=== PATIENT | female | born 1950 | race Caucasian/White ===

== ENCOUNTER → 2018-11-04 | Outpatient (CLI) | payer MEDICARE ==
--- NOTE | 2018-11-04 12:07 | BD ---
EXAMINATION TYPE: Axial Bone Density DATE OF EXAM: 11/04/2018 CLINICAL HISTORY: Height: 63.75 Weight: 209 FRAX RISK QUESTIONS: Alcohol (3 or more units per day): no Family History (Parent hip fracture): no Glucocorticoids (More than 3mos): no (Ex: prednisone, prednisolone, methylprednisolone, dexamethasone, and hydrocortisone). History of Fracture in Adulthood: toe Secondary Osteoporosis: 1. Type 1 Diabetes: no 2. Hyperthyroidism: no 3. Menopause before 45: no 4. Malnutrition: no 5. Chronic liver disease: no Rheumatoid Arthritis: no Current Tobacco Use: no RISK FACTORS HISTORY OF: Family History of Osteoporosis: no Active: yes Diet low in dairy products/other sources of calcium: no Postmenopausal woman: yes Take estrogen and/or progesterone medications: not now How long: about 8 years after 1999 hysterectomy Lost more than 2 inches in height since high school: no Frequent falls: no Poor Health: no Hyperparathyroidism: no Adrenal Insufficiency: no MEDICATIONS: Prednisone or other steroids: no Thyroid Medications: yes How Long: about 25 years Osteoporosis Medications: no Additional Medications: multivitamin Additional History: history of Hashimotos EXAM MEASUREMENTS: Bone mineral densitometry was performed using the [employer]. Bone mineral density as measured about the Lumbar spine is: ----- L1-L4(G/cm2): 1.208 T Score Values are as follows: ----- L2: 0.5 ----- L3: 0.3 ----- L4: 0.6 ----- L1-L4: 0.2 Bone mineral density not previously done at this facility; done elsewhere Bone mineral density about the R hip (g/cm2): 0.837 Bone mineral density about the L hip (g/cm2): 0.827 T Score values are as follows: -----R Neck: -1.4 -----L Neck: -1.5 -----R Total: -1.1 -----L Total: -1.0 Bone mineral density not previously done at this facility; done elsewhere IMPRESSION: Osteopenia (T Score between -2.5 and -1). There is slightly increased risk of fracture and the patient may be considered for treatment. Re-Screen 2-5 years. NOTE: T-SCORE=SD OF THE YOUNG ADULT MEAN.
== END | disposition home or self-care (01) ==
LOC: RADBDWWP 07:21
PROVIDERS: ATTEND Family Medicine
DX: M85.851 Other specified disorders of bone density and structure, right thigh (principal); M85.852 Other specified disorders of bone density and structure, left thigh
CPT/HCPCS: 77080

== ENCOUNTER → 2019-03-30 | Outpatient (CLI) | payer MEDICARE ==
--- NOTE | 2019-04-06 14:28 | MM ---
Reason for exam: screening (asymptomatic). Last mammogram was performed 1 year and 9 months ago. History: Patient is postmenopausal. Took estrogen for 8 years. Physical Findings: A clinical breast exam by your physician is recommended on an annual basis and results should be correlated with mammographic findings. MG Screening Mammo w CAD Bilateral CC and MLO view(s) were taken. Prior study comparison: June 16, 2017, mammogram, performed at [place]. April 17, 2016, mammogram, performed at [place]. There are scattered fibroglandular densities. Finding: There are typically benign vascular calcifications. No suspicious abnormality. No significant changes in finding since June 16, 2017 and April 17, 2016. ASSESSMENT: Benign, BI-RAD 2 RECOMMENDATION: Routine screening mammogram of both breasts in 1 year.
== END | disposition home or self-care (01) ==
LOC: RADMAMWWP 11:09
PROVIDERS: ATTEND Family Medicine
DX: Z12.31 Encounter for screening mammogram for malignant neoplasm of breast (principal)
CPT/HCPCS: 77067

== ENCOUNTER → 2019-07-16 | Outpatient (CLI) | payer MEDICARE ==
[2019-07-16 07:53] LABS: African American GFR (CKD) >90 (>60 ml/min/1.73 sqM); Blood Urea Nitrogen 11 mg/dL (7-17); Non-African American GFR(CKD) 82 (>60 ml/min/1.73 sqM)
--- NOTE | 2019-07-16 08:36 | CT ---
EXAMINATION TYPE: CT soft tissue neck w con DATE OF EXAM: 07/16/2019 COMPARISON: None HISTORY: Left vocal cord paralysis CT DLP: 619 mGycm CONTRAST: CT scan of the neck is performed with IV Contrast, patient injected with 100 ml mL of Isovue 300. Contrast enhanced CT of the neck was performed from the skull base through the lung apices. AIRWAY: The supraglottic, glottic, and subglottic portions of the airway appear patent and free of mass. SALIVARY GLANDS: The submandibular and parotid glands are free of mass or inflammatory process. THYROID GLAND: No nodules or masses seen. LYMPH NODES: No adenopathy seen greater than 1cm. LUNG APICES: No nodule or mass is seen. OTHER: Vascular structures are patent. No significant degenerative change of the cervical spine. N o abscess seen. IMPRESSION: No distinct abnormality to account for the patient's symptoms. Consider direct visualization.
== END | disposition home or self-care (01) ==
LOC: RADCTMAIN 07:18
PROVIDERS: ATTEND Otolaryngology
DX: J38.00 Paralysis of vocal cords and larynx, unspecified (principal)
CPT/HCPCS: 82565; 84520; 70491; 36415; Q9967

== ENCOUNTER → 2019-10-13 | Outpatient (CLI) | payer MEDICARE ==
[2019-10-13 09:26] LABS: Basophils % (A) 1 %; Eosinophils # (A) 0.1 k/uL (0-0.7); Eosinophils % (A) 2 %; HCT 43.3 % (34.0-46.0); HGB 14.5 gm/dL (11.4-16.0); Lymphocytes # (A) 0.8 k/uL (1.0-4.8); Lymphocytes % (A) 18 %; MCH 29.6 pg (25.0-35.0); MCHC 33.5 g/dL (31.0-37.0); MCV 88.5 fL (80.0-100.0); Mean Platelet Volume 5.7; Monocytes # (A) 0.3 k/uL (0-1.0); Monocytes % (A) 6 %; Neutrophils # (A) 3.3 k/uL (1.3-7.7); Neutrophils % (A) 71 %; Platelet Count 290 k/uL (150-450); RBC 4.89 m/uL (3.80-5.40); RDW 12.7 % (11.5-15.5); WBC 4.6 k/uL (3.8-10.6)
[2019-10-13 16:06] LABS: African American GFR (CKD) 86.6 (60.0-200.0); Albumin 4.2 g/dL (3.80-4.90); Albumin/Globulin Ratio 2.21 (1.60-3.17); BUN/Creat Ratio 11.25 Ratio (12.00-20.00); Calcium 9.1 mg/dL (8.7-10.3); Chol/HDL Ratio 3.02; Globulin 1.9 g/dL (1.6-3.3); LDL Cholesterol,Calculated 109.2 mg/dL (0.0-131.0); Non-African American GFR(CKD) 74.7 (60.0-200.0); Potassium 4.2 mmol/L (3.5-5.5); Total Bilirubin 0.4 mg/dL (0.2-1.2); Total Protein 6.1 g/dL (6.2-8.2); VLDL Calculation 13.8 mg/dL (5.00-40.00)
== END ==
LOC: LABWHC1 08:37
PROVIDERS: ATTEND Family Medicine
DX: Z00.00 Encounter for general adult medical examination without abnormal findings (principal); F31.81 Bipolar II disorder; E06.3 Autoimmune thyroiditis
CPT/HCPCS: 36415; 80053; 80061; 84443; 85025

== ENCOUNTER → 2021-05-22 | Outpatient (CLI) | payer MEDICARE ==
--- NOTE | 2021-05-25 13:42 | MM ---
Reason for exam: screening (asymptomatic). Last mammogram was performed 2 years and 2 months ago. History: Patient is postmenopausal. Family history of breast cancer in sister. Took estrogen for 8 years. Physical Findings: A clinical breast exam by your physician is recommended on an annual basis and results should be correlated with mammographic findings. MG 3D Screening Mammo W/Cad Bilateral CC and MLO view(s) were taken. Prior study comparison: March 30, 2019, bilateral MG screening mammo w CAD. June 16, 2017, mammogram, performed at [place]. There are scattered fibroglandular densities. Finding: There are typically benign vascular calcifications in the right breast. ASSESSMENT: Benign, BI-RAD 2 RECOMMENDATION: Routine screening mammogram of both breasts in 1 year.
== END | disposition home or self-care (01) ==
LOC: RADMAMWWP 13:07
PROVIDERS: ATTEND Family Medicine
DX: Z12.31 Encounter for screening mammogram for malignant neoplasm of breast (principal); Z78.0 Asymptomatic menopausal state; Z80.3 Family history of malignant neoplasm of breast; Z79.818 Long term (current) use of other agents affecting estrogen receptors and estrogen levels
CPT/HCPCS: 77063; 77067

== ENCOUNTER → 2021-06-28 | Outpatient (CLI) | payer MEDICARE ==
--- NOTE | 2021-06-28 09:59 | XR ---
EXAMINATION TYPE: XR knee complete LT DATE OF EXAM: 06/28/2021 COMPARISON: None HISTORY: Pain TECHNIQUE: 3 view left knee FINDINGS: There is narrowing of the medial lateral compartment joint spaces. Patellofemoral joint spa ce degenerative changes noted. Posterior superior and posterior inferior patellar spurring is present . Medial and lateral tibial plateau spurring is present. No acute fractures are evident. No joint effusion is evident. IMPRESSION: 1. Moderate degenerative changes left knee
== END | disposition home or self-care (01) ==
LOC: RADXRMAIN 09:24
PROVIDERS: ATTEND Family Medicine
DX: M17.12 Unilateral primary osteoarthritis, left knee (principal)

== ENCOUNTER → 2021-07-17 | Outpatient (CLI) | payer MEDICARE ==
--- NOTE | 2021-07-17 10:39 | XR ---
EXAMINATION TYPE: XR chest 2V DATE OF EXAM: 07/17/2021 COMPARISON: NONE HISTORY: Shortness of breath TECHNIQUE: Frontal and lateral views of the chest are obtained. FINDINGS: Scattered senescent parenchymal changes noted. No evidence for infiltrate. No evidence for atelectasis. Heart size is stable. Mediastinal structures are stable and grossly unremarkable. No evidence for hilar prominence. Degenerative changes dorsal spine. IMPRESSION: 1. No evidence for acute pulmonary disease.
== END | disposition home or self-care (01) ==
LOC: RADXRMAIN 10:14
PROVIDERS: ATTEND Otolaryngology
DX: R06.02 Shortness of breath (principal)
CPT/HCPCS: 71046

== ENCOUNTER → 2022-08-05 | Outpatient (CLI) | payer MEDICARE ==
[~2022-08-05] MED LIST: REGADENOSON 0.4 MG/5 ML SYRINGE IV PRN
--- NOTE | 2022-08-05 12:29 | NM ---
EXAMINATION TYPE: NM stress lexiscan cardiolite DATE OF EXAM: 08/05/2022 COMPARISON: NONE HISTORY: Abnormal EKG TECHNIQUE: After the intravenous administration of 10.0 mCi Tc 99m Sestamibi - Cardiolite resting SP ECT images acquired 45 minutes post injection. The patient received 0.4mg Lexiscan, 26.0 mCi Tc 99m Sestamibi - Stress images obtained [address] injection FINDINGS: Review of stress and rest SPECT images demonstrates no distinct perfusion abnormality. Gated analysi s shows normal wall motion with an estimated left ventricular ejection fraction of 69 %. IMPRESSION: No scintigraphic evidence for reversible ischemia.
--- NOTE | 2022-08-05 15:38 | CA ---
Lexiscan Nuclear Stress Test Report Name: Johanne Blake Exam Date: 08/05/2022 09:22 Exam Location: [place] Stress Ht (in): 65 Wt (lb): 210 BSA: 2.02 Ordering Phys: Sawyer York MD Referring Phys: Esme Velasco Technologist: Claude Banks Age: 71 Gender: F : 1950 Procedure CPT: Indications: R94.31 abn ekg ICD-10 Codes: Patient History: Medications: SYNTHROID, MELOXICAM Meds past 24 hrs: Pretest Chest Pain: STRESS TEST Lexiscan Protocol Exercise Duration (min:sec): 02:[address] Depressions (mm): Angina Score: Horvath Score: Resting HR (bpm): 71 Peak HR (bpm): 90 Resting BP (mmHg): 143 / 82 Peak BP (mmHg): 139 / 76 MPHR: 148 Target HR: 126 % MPHR: 61 METS: 1.0 Total Dose: Peak Dose: Atropine: Double Product: 40371 BP Response: Stress Termination: PROTOCOL COMPLETE Stress Symptoms: NO SYMPTOMS Stress Summary: ECG ANALYSIS Resting ECG: Stress ECG: CONCLUSIONS Baseline heart rate 71 beats a minute, Baseline blood pressure 143/82 mmHg Patient received Lexiscan infusion per protocol No ECG is for ischemia No arrhythmias Occasional PACs Underlying right bundle branch block pattern Dr. Migue Mary MD (Electronically Signed) Final Date: 05 August 2022 15:37
== END | disposition home or self-care (01) ==
LOC: RADNMMAIN 07:33
PROVIDERS: ATTEND Family Medicine
DX: R94.31 Abnormal electrocardiogram [ECG] [EKG] (principal); R07.9 Chest pain, unspecified
CPT/HCPCS: 93017; 78452; A9500; J2785

== ENCOUNTER → 2022-12-03 | Outpatient (CLI) | payer MEDICARE ==
[2022-12-03 10:50] LABS: Basophils # (A) 0.07 X 10*3/uL (0.00-0.10); Basophils % (A) 1.2 %; Eosinophils % (A) 3.4 %; HCT 37.4 % (37.2-46.3); Immature Grans, Automated 0.3 %; Lymphocytes # (A) 1.91 X 10*3/uL (0.90-5.00); Lymphocytes % (A) 32.2 %; MCH 28.9 pg (27.0-32.0); MCHC 32.1 g/dL (32.0-37.0); MCV 90.1 fL (80.0-97.0); Mean Platelet Volume 11.7 fL (9.5-12.2); Monocytes # (A) 0.33 X 10*3/uL (0.20-1.00); Monocytes % (A) 5.6 %; NRBC Per 100 WBC 0 /100 WBCS (0.0-0.0); Neutrophils # (A) 3.41 X 10*3/uL (1.80-7.70); Neutrophils % (A) 57.3 %; Platelet Count 299 X 10*3/uL (140-440); RBC 4.15 X 10*6/uL (4.10-5.20); RDW 12.9 % (11.5-14.5); WBC 5.94 X 10*3/uL (4.50-10.00)
[2022-12-03 17:20] LABS: Chol/HDL Ratio 3.97 Ratio
--- NOTE | 2022-12-04 07:36 | MM ---
Reason for Exam: Screening (asymptomatic). Last mammogram was performed 1 year(s) and 7 month(s) ago. Patient History: Menarche at age 11. First Full-Term at age 18. Left ovary removed at age 49. Right ovary removed at age 49. Hysterectomy at age 49. Postmenopausal. Patient used Estrogen for 8 years. Sister had breast cancer. Risk Values: Michelle 5 year model risk: 3.3%. NCI Lifetime model risk: 7.9%. Prior Study Comparison: 06/16/2017 Screening Mammogram, [place]. 03/30/2019 Bilateral Screening Mammogram, [facility]. 05/22/2021 Bilateral Screening Mammogram, [facility]. Tissue Density: The breast tissue is almost entirely fat. Findings: Analyzed By CAD. There is no suspicious group of microcalcifications or new suspicious mass in either breast. Overall Assessment: Negative, BI-RAD 1 Management: Screening Mammogram of both breasts in 1 year. A clinical breast exam by your physician is recommended on an annual basis and results should be correlated with mammographic findings. [facility] will attempt to contact patient to return for supplemental views and ultrasound if indicated. Electronically signed and approved by: Carlton Ambrocio DO
== END | disposition home or self-care (01) ==
LOC: RADMAMWWP 07:31
PROVIDERS: ATTEND Family Medicine
DX: Z12.31 Encounter for screening mammogram for malignant neoplasm of breast (principal); Z00.01 Encounter for general adult medical examination with abnormal findings; E78.2 Mixed hyperlipidemia; E03.9 Hypothyroidism, unspecified; Z80.3 Family history of malignant neoplasm of breast; Z78.0 Asymptomatic menopausal state
CPT/HCPCS: 77063; 77067; 80053; 80061; 83036; 84439; 84443; 84481; 85025

== ENCOUNTER → 2022-12-05 | Outpatient (CLI) | payer MEDICARE ==
[2022-12-05 09:48] LABS: Albumin 4.1 g/dL (3.5-5.0); Calcium 9.4 mg/dL (8.4-10.2); Potassium 4.4 mmol/L (3.5-5.1); Total Bilirubin 0.5 mg/dL (0.2-1.3); Total Protein 7.2 g/dL (6.3-8.2)
== END | disposition home or self-care (01) ==
LOC: LAB 08:45
PROVIDERS: ATTEND Nurse Practitioner Adult Health
DX: Z00.01 Encounter for general adult medical examination with abnormal findings (principal); E78.2 Mixed hyperlipidemia; E03.9 Hypothyroidism, unspecified
CPT/HCPCS: 80053

== ENCOUNTER → 2023-06-03 | Outpatient (CLI) | payer MEDICARE ==
[2023-06-03 09:13] LABS: INR 0.9 (<1.2)
[2023-06-03 16:38] LABS: HCT 44.5 % (37.2-46.3); HGB 15.1 d/dL (12.0-15.0); MCH 29.5 pg (27.0-32.0); MCHC 33.9 d/dL (32.0-37.0); MCV 86.9 FL (80.0-97.0); Mean Platelet Volume 8.8 FL (9.5-12.2); NRBC Per 100 WBC 0 X 10*3/uL (0.00-0.01); Platelet Count 319 X 10*3/uL (140-440); RBC 5.12 X 10*6/uL (4.10-5.20); RDW 12.7 % (11.5-14.5); WBC 5.78 X 10*3/uL (4.50-10.00)
[2023-06-03 16:54] LABS: ALT 28 U/L (8-44); AST 24 U/L (13-35); Albumin 4.4 d/dL (3.8-4.9); Albumin/Globulin Ratio 1.91 Ratio (1.60-3.17); Alkaline Phosphatase 106 U/L (41-126); BUN/Creat Ratio 9.83 Ratio (12.00-20.00); Blood Urea Nitrogen 5.9 mg/dL (9.0-27.0); Calcium 9.9 mg/dL (8.7-10.3); Chloride 104 mmol/L (96-109); Globulin 2.3 d/dL (1.6-3.3); Glucose 107 mg/dL (70-110); Potassium 4.2 mmol/L (3.5-5.5); Sodium 138 mmol/L (135-145); Total Bilirubin 0.3 mg/dL (0.3-1.2); Total Protein 6.7 d/dL (6.2-8.2)
[2023-06-03 17:11] LABS: Appearance,Urine Clear (Clear); Bilirubin,Urine Negative (Negative); Blood,Urine Negative (Negative); Color,Urine Colorless; Glucose,Urine (UA) Negative (Negative); Ketones,Urine Negative (Negative); Leukocyte Esterase,Urine Negative (Negative); Nitrite,Urine Negative (Negative); Protein,Urine Negative (Negative); Specific Gravity,Urine 1.003 (1.001-1.035); Urobilinogen,Urine <2.0 mg/dL (<2.0)
== END | disposition home or self-care (01) ==
LOC: LABPAT 07:57
PROVIDERS: ATTEND Orthopaedic Surgery
DX: Z01.818 Encounter for other preprocedural examination (principal); M17.12 Unilateral primary osteoarthritis, left knee
CPT/HCPCS: 36415; 80053; 81003; 85027; 85610; 85730; 87070; 93005

== ENCOUNTER 2023-06-25 10:48 | Day surgery (SDC) | payer MEDICARE ==
[2023-06-18 14:35] VITALS: BMI 32.4
[~2023-06-25 10:48] MED LIST changes: +ACETAMINOPHEN TAB 500 MG TAB PO PRN; +DEXAMETHASONE SOD PHOSPHATE 10 MG/ML 1 ML VIAL IV PRN; +DOCUSATE 100 MG CAP PO PRN; +FAMOTIDINE 20 MG/2 ML VIAL IVP PRN; +HYDROmorphone 0.5 MG/0.5 ML SYRINGE IVP PRN; +KETOROLAC 15 MG/ML 1 ML VIAL IVP PRN; +LACTATED RINGERS 1,000 ML IV SCH; +LIDOCAINE 1% (10MG/ML) FOR IV START INTRADERMA PRN; +ONDANSETRON 4 MG/2 ML VIAL IVP ONE; +ONDANSETRON 4 MG/2 ML VIAL IVP PRN; -REGADENOSON 0.4 MG/5 ML SYRINGE IV PRN; +ROPIVACAINE/EPI/CLONIDINE/KET 50 ML SYRINGE MISCELLANE PRN; +TRANEXAMIC 1,000 MG/100ML-NACL 1,000 MG in SALINE 1 100ML.BAG IV PRN; +TRANEXAMIC 1,000 MG/100ML-NACL 1,000 MG in SALINE 1 100ML.BAG IVPB PRN; +oxyCODONE ER 10 MG TAB.ER.12H PO PRN
[2023-06-25] MEDS ORDERED: fentaNYL (PF) 50 MCG/1 ML VIAL IVP ONE (11:59)
[2023-06-25] MEDS ORDERED: MIDAZOLAM 2 MG/2 ML VIAL IVP ONE (11:59)
--- NOTE | 2023-06-25 12:14 | P.ANPRN ---
Procedure Note - Anesthesia - Nerve Block Performed Left Adductor Canal Time Out Performed: Yes (11:58) Date of Procedure: 06/25/23 Procedure Start Time: :58 Procedure Stop Time: 12:03 Location of Patient: PreOp Indication: Acute Post-Operative Pain, Requested by Surgeon (Dr Finn) Sedation Type: Sedate with meaningful contact maintained Preparation: Sterile Prep Position: Supine Catheter: None Needle Types: Pajunk Needle Gauge: 21 Ultrasound used to visualize needle placement: Yes Ultrasound used to observe medication spread: Yes Injectate: 0.5% Ropivacaine (see comment for volume) (20cc) Blood Aspirated: No Pain Paresthesia on Injection Noted: No Resistance on Injection: Normal Image Stored and Saved: Yes Events: Uneventful and Well Tolerated
--- NOTE | 2023-06-25 12:16 | P.ANPRN ---
Procedure Note - Anesthesia - Nerve Block Performed Left iPack Time Out Performed: Yes Date of Procedure: 06/25/23 Procedure Start Time: 12:04 Procedure Stop Time: 12:08 Location of Patient: PreOp Indication: Acute Post-Operative Pain, Requested by Surgeon (Dr Finn) Sedation Type: Sedate with meaningful contact maintained Preparation: Sterile Prep Position: Supine Catheter: None Needle Types: Pajunk Needle Gauge: 21 Ultrasound used to visualize needle placement: Yes Ultrasound used to observe medication spread: Yes Injectate: 0.5% Ropivacaine (see comment for volume) (20cc +5cc PF Normal saline) Blood Aspirated: No Pain Paresthesia on Injection Noted: No Resistance on Injection: Normal Image Stored and Saved: Yes Events: Uneventful and Well Tolerated
[2023-06-25] MEDS ORDERED: LIDOCAINE 2% INJ 20 MG/ML (2 ML VIAL) ONE (12:36)
[2023-06-25] MEDS ORDERED: SUCCINYLCHOLINE CHLORIDE 200 MG/10 ML VIAL IV ONE (12:36)
[2023-06-25] MEDS ORDERED: ROCURONIUM 10 MG/ML (5 ML VIAL) IV ONE (12:36)
[2023-06-25] MEDS ORDERED: ROPIVACAINE 5 MG/ML 30 ML VIAL ONE (12:36)
[2023-06-25] MEDS ORDERED: fentaNYL (PF) 50 MCG/ML 2 ML AMP ONE (12:36)
[2023-06-25] MEDS ORDERED: GLYCOPYRROLATE 0.2 MG/ML 2 ML VIAL ONE (12:36)
[2023-06-25] MEDS ORDERED: MIDAZOLAM 2 MG/2 ML VIAL ONE (12:36)
[2023-06-25] MEDS ORDERED: NEOSTIGMINE 1 MG/ML 10 ML VIAL ONE (12:36)
[2023-06-25] MEDS ORDERED: PROPOFOL 10 MG/ML 20 ML VIAL IV ONE (12:36)
[2023-06-25] MEDS ORDERED: TRANEXAMIC 1,000 MG/100ML-NACL PREMIX BAG ONE (12:36)
[2023-06-25] MEDS ORDERED: LACTATED RINGERS 1,000 ML IV ONE (13:30)
[2023-06-25] MEDS ORDERED: ONDANSETRON 4 MG/2 ML VIAL IVP PRN (15:03)
[2023-06-25] MEDS ORDERED: HYDROcodone/APAP 5-325MG 1 EACH TAB PO PRN (15:03)
[2023-06-25] MEDS ORDERED: hydrOXYzine pamoate 25 MG CAP PO PRN (15:03)
[2023-06-25] MEDS ORDERED: NALOXONE 0.4 MG/ML 1 ML VIAL IV PRN (15:03)
[2023-06-25] MEDS ORDERED: HYDROmorphone 0.5 MG/0.5 ML SYRINGE IVP PRN ×3 (15:03)
--- NOTE | 2023-06-25 15:03 | P.OP ---
Date of Procedure: 06/25/23 Preoperative Diagnosis: 1. Severe left knee osteoarthritis Postoperative Diagnosis: Same Procedure(s) Performed: Left total knee replacement Implants: 1. [place] Triathlon CR Femur Size #3 2. [place] Triathlon [place] Tibial Base Size #2 3. Steven Triathlon CS poly Size #2, 9-mm 4. Steven Triathlon all poly patella, Size #29 Anesthesia: JACOBA, regional Surgeon: Armando Finn Plant Operator Helper #1: Radu Little Estimated Blood Loss (ml): 100 IV fluids (ml): 1,200 Pathology: none sent Condition: stable Disposition: PACU Indications for Procedure: I met with the patient preoperatively in the office setting and discussed treatment of their symptomatic knee arthritis. They failed a long course of nonsurgical treatment and elected to proceed with an elective total knee replacement. I discussed the potential risks and complications at length and gave them ample time to ask questions. Risks discussed included: risks from anesthesia, superficial site surgical infection, acute and/or chronic periprosthetic joint infection, delayed wound healing, drainage, wound necrosis, instability, stiffness, stiffness requiring manipulation and/or revision surgery, damage to local blood vessels or nerves, aseptic loosening of the implants, extensor mechanism issues including disruption, patellar maltracking, avascular necrosis etc., continued or worsened knee pain, generalized dissatisfaction with surgical outcome, need for revision surgery, an inability to regain preinjury level of function, DVT, PE, other medical complications, and possibly loss of life or limb. The patient voiced their understanding that while these are the most common complications other less common complications are possible. They provided both their verbal and written consent to go forward with surgery. Description of Procedure: The patient was identified in preoperative holding and the correct operative extremity was verified and marked with a marker. I reviewed the consent form with the patient at length. All of their questions were answered. The patient was given a block by anesthesia. They were then brought back to the operating room. They were transferred onto the operating room table where a general anesthetic, preoperative antibiotics, and tranexamic acid were administered by anesthesia. A tourniquet was applied to the proximal aspect of the operative extremity. The contralateral extremity was padded under the heel and secured to the operating room table with a nonsterile blue towel and tape. The ipsilateral arm was carefully draped across the patient's chest and secured with a pillow and foam. A post was applied over the lateral aspect of the ipsilateral thigh and a bolster was placed under the ipsilateral foot. I verified that the operative extremity was stable and the knee was flexed to 90. The operative extremity was then placed in a leg romeo, nonsterile drapes were applied, and the extremity was prepped and draped sterilely in the standard sterile fashion. Prior to starting surgery timeout was performed identifying the correct patient, operative extremity, and procedure. The leg was then elevated, exsanguinated with an Esmarch bandage, and the tourniquet was inflated. An anterior midline incision was made sharply with a scalpel. Once I had dissected deep to the superficial fascial layer medial and lateral flaps were elevated. A medial parapatellar arthrotomy was created. Upon opening the knee joint there were diffuse arthritic changes in all 3 compartments. The anterior horn of the medial meniscus were sharply released and a medial release was performed around the posterior medial corner of the knee to facilitate retractor placement. The fat pad was excised with electrocautery. The patella was found to be severely arthritic and a provisional cut was made with a sagittal saw to facilitate mobilization of the extensor mechanism during the procedure. Remnants of the ACL and PCL were then excised from the notch. 4 mm pins were then placed within the incision in the medial distal femur and proximal tibia. Arrays were applied to the pins and I verified they were completely tightened. The knee was then registered with the Avocado™ robot and manipulations in implant position were made to balance the knee and opitmize implant position. Using the Dexter robotic saw all cuts were made in accordance with our plan. After all bony fragments had been removed the cuts were verified with the planar probe. The tibia was then subluxed forward and sized. The knee was brought into flexion and a lamina setter helper was placed to allow removal of the meniscal remnants both medially and laterally as well as posterior osteophytes. Local anesthetic was then infiltrated around the joint capsule. Trial implants were then placed within the knee. Range of motion and collateral ligament tension was then evaluated. Adjustments in implant size and position were then made accordingly. Once the knee was felt to be appropriately balanced the Dexter pins were removed. The patella was then recut, sized, and punched. A trial patellar button was then placed. With the trial components in place, the patella tracked midline. The femur was then drilled and the trial component removed. The trial tibial component was then appropriately rotated, pinned, and prepared for the keel. All trial components were then removed from the knee. The knee was thoroughly irrigated with pulsatile lavage. Cement was prepared via vacuum mixing in a bowl on the back table. I then hand pressurized cement into the femur and tibia and placed the implants beginning with the tibial base tray and poly liner, femoral component, and finally the patellar button. All extruded cement was removed including from the pin sites. Once the cement had hardened the knee was evaluated one final time with the final polyethylene liner in place. The knee had full extension and flexion and felt stable to varus and valgus stress throughout the arc of motion. The tourniquet was released and with the tourniquet down the patella tracked midline. All bleeders were controlled with electrocautery. The knee was then soaked for 3 minutes with a dilute Betadine soak. The knee was thoroughly irrigated using 3 L of sterile saline and pulsatile lavage. A deep drain was placed. The extensor mechanism was then reapproximated using pop off Vicryl sutures followed by a running barbed suture. The knee was then closed in layers with a 0 strata fix for the deep fascial layer, 2-0 strata fix for the superficial subcutaneous layer and Monocryl and Steri-Strips for the skin. A sterile dressing and drain sponge were applied. I verified that all instrument, sponge, and sharp counts were correct. The patient was then transferred off the operating room table, extubated, and brought to recovery having tolerated the procedure well. Radu Little PA-C was required as a skilled geriatric nurse assistant due to the complexity of the procedure for patient positioning, draping, retraction, placement of hardware, and closure of wound. PLAN: The patient can weight-bear as tolerated on the operative extremity. DVT prophylaxis with aspirin 81 mg twice a day based on preoperative risk stratification. Follow-up in the office in 2 weeks for wound check and x-rays of the knee including an AP and lateral.
--- NOTE | 2023-06-25 15:47 | XR ---
EXAMINATION TYPE: XR knee limited LT DATE OF EXAM: 06/25/2023 3:43 PM INDICATION: Patient age:Female; 72 years old; Reason for study: Evaluation for Postop abnormality and alignment; H. COMPARISON: Left knee radiograph 06/28/2021, CT left knee 06/17/2023 TECHNIQUE: The Left knee(s) was examined in frontal and crosstable lateral projections. FINDINGS: Postsurgical changes from left total knee arthroplasty with distal femoral and proximal t ibial components. Hardware appears intact with appropriate alignment. This associated soft tissue amber ma and gas. Surgical drain identified with tip posterior to the patella. No acute fracture or disloca tion. IMPRESSION: Postsurgical changes from left total knee arthroplasty. Hardware appears intact with appropriate alig nment.
--- NOTE | 2023-06-25 17:41 | P.CONS ---
History of Present Illness - Reason for Consult Consult date: 06/25/23 Hypothyroidism Requesting physician: Armando Finn - Chief Complaint left knee pain - History of Present Illness Patient is a 72-year-old female with Analy's thyroiditis, dyslipidemia, and known right bundle branch block who presented for elective left total knee arthroplasty. No immediate postoperative complications. Patient seen and examined at bedside. He is doing well. She is having minimal postoperative pain. She denies any lightheadedness, dizziness, nausea, vomiting. She's been doing well at home and has not been requiring any assistive devices to walk. Vital signs reviewed General: nontoxic, no distress, appears at stated age Derm: warm, dry Cardiovascular: S1S2 reg, no murmur, positive posterior tibial pulse bilateral, trace edema left lower extremity, capillary refill less than 2 seconds Lungs: clear to auscultation bilateral, no rhonchi, no rales, no wheeze, no accessory muscle use Ext: no gross muscle atrophy, moving all 4 cavities independently, no contractures Neuro: CN II-XII grossly intact, no focal neuro deficits Psych: Alert, oriented, appropriate affect Assessment/Plan: Patient is a 72-year-old female status post left total knee arthroplasty Hypothyroidism -Resume Synthroid 125 g daily Obesity with BMI 32.5 -Outpatient structured weight loss Imaging: Knee x-ray: Postsurgical changes left total knee, hardware appears intact with appropriate alignment Data Review: Vitals reviewed to mature 98.4, pulse 92, respirations 16, blood pressure 144/80, O2 sat 98% on room air Preoperative blood work reviewed. Hemoglobin 15.1, hematocrit 44.5, creatinine 0.6 Thank you for allowing us to participate in the care of this pleasant patient. Do not hesitate to contact us with questions. Someone can be reached from the [facility] hospitalist group all hours of the day at [phone] or via ISpeak. This dictation was prepared using [employer] voice recognition software. Though every attempt is made to correct errors during dictation some may still exist. Past Medical History Past Medical History: Osteoarthritis (OA), Thyroid Disorder History of Any Multi-Drug Resistant Organisms: None Reported Past Surgical History: Hysterectomy, Orthopedic Surgery Additional Past Surgical History / Comment(s): Right rotator cuff repair, right hammer toe surgery X2, ganglion cyst removed, bilateral cataract surgery. Past Anesthesia/Blood Transfusion Reactions: No Reported Reaction Smoking Status: Never smoker - Past Family History Mother Family Medical History: Cancer Additional Family Medical History / Comment(s): Ovarian cancer. Medications and Allergies Home Medications Medication Instructions Recorded Confirmed Type Acetaminophen Tab [Tylenol Tab] 500 - 1,000 mg PO Q4-6H PRN 06/18/23 06/25/23 History Calcium Carbonate [Calcium] 600 mg PO DAILY 06/18/23 06/18/23 History Levothyroxine Sodium 125 mcg PO QAM 06/18/23 06/25/23 History Multivitamins, Thera [Multivitamin 1 tab PO DAILY 06/18/23 06/18/23 History (formulary)] Allergies Allergy/AdvReac Type Severity Reaction Status Date / Time No Known Allergies Allergy Unverified 06/25/23 11:04 Physical Exam Osteopathic Statement: *. No significant issues noted on an osteopathic structural exam other than those noted in the History and Physical/Consult. Vitals: Vital Signs Temp Pulse Resp BP Pulse Ox 06/25/23 15:26 98.4 F 92 16 144/80 98 06/25/23 15:11 84 16 138/64 99 06/25/23 14:56 98.4 F 87 16 134/67 100 06/25/23 12:13 68 16 153/64 98 06/25/23 11:04 97.0 F L 87 18 162/79 98 Intake and Output 06/25/23 06/25/23 06/25/23 06:59 14:59 22:59 Intake Total 1650 Output Total 100 500 Balance 1550 -500 Intake: IV 1650 Output: Urine 500 Estimated Blood Loss 100 Other: Weight 88.6 kg 88.6 kg
[2023-06-25] MEDS: LACTATED RINGERS 1,000 ML IV SCH (18:22)
[2023-06-25] MEDS ORDERED: SENNOSIDES-DOCUSATE SODIUM 1 EACH TAB PO SCH (21:00)
[2023-06-25] MEDS: ASPIRIN 81 MG PO SCH (21:06)
[2023-06-25 21:39] VITALS: RESP 18
[2023-06-25] MEDS: HYDROcodone/APAP 5-325MG 1 EACH TAB PO PRN (23:04)
[2023-06-26] MEDS: LACTATED RINGERS 1,000 ML IV SCH (00:29)
[2023-06-26 06:44] LABS: HCT 35.8 % (34.0-46.0); HGB 11.9 gm/dL (11.4-16.0); MCH 29.1 pg (25.0-35.0); MCHC 33.1 g/dL (31.0-37.0); MCV 87.7 fL (80.0-100.0); Platelet Count 286 k/uL (150-450); RBC 4.08 m/uL (3.80-5.40); WBC 12.7 k/uL (3.8-10.6)
[2023-06-26 07:59] VITALS: BP 126/76; PULSE 92; TEMP 97.8
--- NOTE | 2023-06-26 08:37 | P.DS ---
Providers Expected date of discharge: 06/26/23 Attending physician: Armando Finn Consults: 06/25/23 15:03 Consult Physician Routine Consulting Provider: Paola White Consult Reason/Comments: medical management Do you want consulting provider notified?: Yes Primary care physician: Sawyer Shepherd [facility] Course: This is a 72-year-old female who has been followed in our office by Dr. Finn for continued complaints of left knee pain due to left knee osteoarthritis. Treatment options were discussed, and patient elected to undergo a left total knee arthroplasty. Patient was seen pre-operatively by Esme Velasco, ENGINEERING INTERN and cardiology and cleared for surgery. Patient underwent a left total knee arthroplasty on 06/25/[address] Finn. The procedure was performed without complication or sequelae. The patient is doing fairly well postoperatively. Vital signs and labs are stable on postoperative day #1. Patient was examined bedside this morning with Dr. Finn. Patient states she is overall doing very well and the pain in her knee is well-controlled. She has been ambulating with a walker with minimal assistance. Patient is awaiting evaluation by physical therapy. Patient is comfortable being discharged home today. Patient has no new complaints this morning. On examination, the patient is sitting up in bed in no apparent distress. She is alert and orientated 3. On inspection of the left knee, there is a clean, dry, intact surgical dressing in place with no bleeding or drainage through the dressing. Patient has good strength and ROM of the left ankle and toes. Motor and sensory function is intact of the left lower extremity. The dorsalis pedis pulse is easily palpable, the left lower extremity is warm and well perfused with brisk capillary refill. Calf is soft and non-tender to palpation. Hemovac drain removed bedside this morning during examination. Patient is discharged home with home health care today in good condition, pending medical clearance. Patient will follow-up in the office at [facility] in 2 weeks. Please see med rec for accurate list of discharge medication. Plan - Discharge Summary Discharge Rx Participant: Yes New Discharge Prescriptions: No Action Levothyroxine Sodium 125 mcg PO QAM Acetaminophen Tab [Tylenol Tab] 500 - 1,000 mg PO Q4-6H PRN PRN Reason: Pain Multivitamins, Thera [Multivitamin (formulary)] 1 tab PO DAILY Calcium Carbonate [Calcium] 600 mg PO DAILY Discharge Medication List Acetaminophen Tab [Tylenol Tab] 500 - 1,000 mg PO Q4-6H PRN 06/18/23 [History] Calcium Carbonate [Calcium] 600 mg PO DAILY 06/18/23 [History] Levothyroxine Sodium 125 mcg PO QAM 06/18/23 [History] Multivitamins, Thera [Multivitamin (formulary)] 1 tab PO DAILY 06/18/23 [History]
[2023-06-26] MEDS: ASPIRIN 81 MG PO SCH (10:03)
[2023-06-26] MEDS: HYDROcodone/APAP 5-325MG 1 EACH TAB PO PRN (10:04)
--- NOTE | 2023-06-26 12:27 | P.PN ---
Subjective Progress Note Date: 06/26/23 Subjective: Seen and examined at bedside. No acute events overnight. She claims that she did well with physical therapy. Denies any new complaints. Pertinent positives and negatives as discussed above, a complete review of systems was performed and all other systems are negative. Vitals Signs Reviewed. General: nontoxic, no distress, appears at stated age Derm: warm, dry, left knee dressing clean, dry, intact Head: atraumatic, normocephalic, symmetric Eyes: EOMI, no lid lag, anicteric sclera Mouth: no lip lesion, mucus membranes moist Cardiovascular: S1S2 reg, no murmur Lungs: CTA bilateral, no rhonchi, no rales , no accessory muscle use Abdominal: soft, nontender to palpation, no guarding, no appreciable organomegaly Ext: no gross muscle atrophy, no edema, no contractures Neuro: CN II-XI grossly intact, no focal neuro deficits Psych: Alert, oriented, appropriate affect Data Reviewed Today: Pertinent Labs: WBC 12.7 hemoglobin 11.9 Imaging: No new imaging Assessment and Plan: Hypothyroidism Obesity with BMI 32.5 Status post left total knee arthroplasty Leukocytosis, reactive, anticipated outcome of surgery -Continue home medications -Outpatient structured weight loss -Rest of the management per primary service Patient is medically optimized for discharge home. Thank you for allowing us to participate in the care of this pleasant patient. Do not hesitate to contact us with questions. Someone can be reached from the [facility] hospitalist group all hours of the day at [phone] or via perfect serve. Objective - Vital Signs Vital signs: Vital Signs Temp 97.8 F 06/26/23 07:58 Pulse 92 06/26/23 08:00 Resp 18 06/26/23 08:00 BP 126/76 06/26/23 07:58 Pulse Ox 96 06/26/23 07:58 FiO2 Intake & Output 06/25/23 06/26/23 06/26/23 18:59 06:59 18:59 Intake Total 1850 Output Total 600 250 Balance 1250 -250 Weight 88.6 kg Intake: IV 1650 Oral 200 Output: Drainage 250 Left Knee 250 Urine 500 Estimated Blood Loss 100 Other: # Voids 1 4 - Labs CBC & Chem 7: 06/26/23 05:46 Labs: Abnormal Lab Results - Last 24 Hours (Table) 06/26/23 Range/Units 05:46 WBC 12.7 H (3.8-10.6) k/uL
== END 2023-06-26 13:19 | disposition home health service (06) ==
LOC: OR 10:48 → 4SSUR 14:47 → OR 06-26 13:19
PROVIDERS: ATTEND Orthopaedic Surgery
DX: M17.12 Unilateral primary osteoarthritis, left knee (principal); E03.9 Hypothyroidism, unspecified; E06.3 Autoimmune thyroiditis; E78.5 Hyperlipidemia, unspecified; I45.10 Unspecified right bundle-branch block; G89.18 Other acute postprocedural pain; E66.9 Obesity, unspecified; Z68.32 Body mass index [BMI] 32.0-32.9, adult; Z90.710 Acquired absence of both cervix and uterus; Z98.890 Other specified postprocedural states; Z80.41 Family history of malignant neoplasm of ovary; Z79.890 Hormone replacement therapy; Z79.899 Other long term (current) drug therapy
CPT/HCPCS: 27447; 97161; 64447; 64999; 85027; 73560; C1776; C1713; J2250; J0330; J1100; J2710; J0690 ×2; J2405; J3010 ×2; J2795; J1885; J2704; J2001

== ENCOUNTER → 2023-09-22 | Outpatient (CLI) | payer MEDICARE ==
--- NOTE | 2023-09-22 16:04 | CT ---
INDICATION: Patient age:Female; 72 years old; Reason for study: [facility] Protocol for right knee replacement, M25.561 PAIN IN RIGHT KNEE; [facility]. COMPARISON: None TECHNIQUE: Thin section axial CT imaging of the entire right lower extremity was performed per [facility] protocol, wi thout the administration of IV contrast. FINDINGS: There is no evidence of acute fracture or dislocation. The hips are grossly unremarkable. Postoperative changes of the left knee. Tricompartmental joint space narrowing with spurring of the r ight knee consistent with moderate to severe osteoarthritic change. No sizable joint effusion. Promin ent well-corticated osteophyte within the posterior knee. Prominent osteophytes along the medial aspe ct of the patella. The ankles grossly unremarkable. The visualized soft tissues appear grossly unremarkable within the limits of unenhanced CT. Sigmoid d iverticulosis. Pelvic phleboliths. Degenerative changes of the visualized lower lumbar spine. IMPRESSION: 1. [facility] protocol for right joint replacement.
== END | disposition home or self-care (01) ==
LOC: RADCTMAIN 14:27
PROVIDERS: ATTEND Orthopaedic Surgery
DX: Z47.1 Aftercare following joint replacement surgery (principal); M17.11 Unilateral primary osteoarthritis, right knee; M21.161 Varus deformity, not elsewhere classified, right knee; M25.562 Pain in left knee; Z96.652 Presence of left artificial knee joint

== ENCOUNTER → 2023-12-04 | Outpatient (CLI) | payer MEDICARE ==
--- NOTE | 2023-12-06 16:26 | MM ---
Reason for Exam: Screening (asymptomatic). Last screening mammogram was performed 12 month(s) ago. Patient History: Menarche at age 11. First Full-Term at age 18. Left ovary removed at age 49. Right ovary removed at age 49. Hysterectomy at age 49. Postmenopausal. Patient used Estrogen for 8 years. Sister had breast cancer. Risk Values: Michelle 5 year model risk: 3.3%. NCI Lifetime model risk: 7.5%. Prior Study Comparison: 03/30/2019 Bilateral Screening Mammogram, [facility]. 05/22/2021 Bilateral Screening Mammogram, [facility]. 12/03/2022 Bilateral MG 3D screening mammo w/cad, [facility]. Tissue Density: There are scattered fibroglandular densities. Findings: Analyzed By CAD. The pattern is symmetrical and stable. No significant interval changes. Benign vascular calcification is present bilaterally. No suspicious groups of microcalcifications, spiculated or lobular masses, architectural distortion or other secondary signs of malignancy are mammographically apparent. Overall Assessment: Benign, BI-RAD 2 Management: Screening Mammogram of both breasts in 1 year. A negative mammogram report should not preclude additional follow up of suspicious palpable abnormalities. Patient should continue monthly self breast exam. A clinical breast exam by your physician is recommended on an annual basis and results should be correlated with mammographic findings. Electronically signed and approved by: Kingsley Pierre D.O. Radiologis
== END | disposition home or self-care (01) ==
LOC: RADMAMWWP 11:05
PROVIDERS: ATTEND Family Medicine
DX: Z12.31 Encounter for screening mammogram for malignant neoplasm of breast (principal); Z78.0 Asymptomatic menopausal state; Z80.3 Family history of malignant neoplasm of breast
CPT/HCPCS: 77063; 77067

== ENCOUNTER 2025-03-30 15:13 | Inpatient (IN) | payer MEDICARE ==
[2025-03-30] MEDS: MORPHINE SULFATE 4 MG/ML SYRINGE IV STA (15:52)
--- NOTE | 2025-03-30 15:57 | ED ---
General Adult HPI - General Chief complaint: Chest Pain Stated complaint: Chest Pain Time Seen by Provider: 03/30/25 15:18 Source: patient Mode of arrival: EMS Limitations: no limitations - History of Present Illness Initial comments: Dictation was produced using [employer] dictation software. please excuse any grammatical, word or spelling errors. Chief Complaint: 74-year-old female no significant comorbidities presents to the ER for rib pain History of Present Illness: Patient is a 74-year-old female denies any significant comorbidities. States that for the last several hours she has had what she describes as rib pain. States that the rib pain encompasses her epigastric abdomen along with radiation to the back. She was seen at the urgent care and there was concern for acute coronary syndrome and patient was brought in by ambulance by EMS. Patient Nu[place] any cardiac history. Denies any family history of cardiac disease. Denies any history of hypertension, dyslipidemia or diabetes. Denies any tobacco use. At the bedside patient complaining of mid thoracic back pain. Denies any positional exacerbation. Denies any exacerbation with oral intake The ROS documented in this emergency department record has been reviewed and confirmed by me. Those systems with pertinent positive or negative responses have been documented in the HPI. All other systems are other negative and/or noncontributory. - Related Data Home Medications Medication Instructions Recorded Confirmed Levothyroxine Sodium 125 mcg PO DAILY 06/18/23 03/30/25 Amitriptyline HCl [Elavil] 25 mg PO HS PRN 03/30/25 03/30/25 FLUoxetine HCL [PROzac] 10 mg PO DAILY 03/30/25 03/30/25 Allergies Allergy/AdvReac Type Severity Reaction Status Date / Time No Known Allergies Allergy Verified 03/30/25 16:28 Review of Systems ROS Statement: Those systems with pertinent positive or pertinent negative responses have been documented in the HPI. ROS Other: All systems not noted in ROS Statement are negative. Past Medical History Past Medical History: GERD/Reflux Additional Past Medical History / Comment(s): RBB History of Any Multi-Drug Resistant Organisms: None Reported Past Surgical History: Joint Replacement, Orthopedic Surgery Past Psychological History: No Psychological Hx Reported Smoking Status: Never smoker Past Alcohol Use History: None Reported Past Drug Use History: None Reported General Exam - General Exam Comments Initial Comments: PHYSICAL EXAM: General Impression: Alert and oriented x3, mildly distressed HEENT: Normocephalic atraumatic, extra-ocular movements intact, pupils equal and reactive to light bilaterally, mucous membranes moist. Cardiovascular: Heart regular rate and rhythm Chest: Able to complete full sentences, no retractions, no tachypnea Abdomen: abdomen soft, non-tender, non-distended, no organomegaly Musculoskeletal: Pulses present and equal in all extremities, no peripheral edema Motor: no focal deficits noted Neurological: CN II-XII grossly intact, no focal motor or sensory deficits noted Skin: Intact with no visualized rashes Psych: Normal affect and mood Limitations: no limitations Course Vital Signs 03/30/25 03/30/25 15:24 17:25 Temperature 98.4 F Pulse Rate 70 86 Respiratory 20 18 Rate Blood Pressure 118/61 127/50 O2 Sat by Pulse 97 98 Oximetry EKG Findings - EKG Comments: EKG Findings:: My EKG interpretation: Ventricular rate 65, sinus rhythm, right bundle branch block, DE interval 285, QRS 160, QTc 445. No DE prolongation, no QTC prolongation, no ST or T-wave changes noted. Overall, this EKG is unr emarkable Medical Decision Making - Medical Decision Making Was pt. sent in by a medical professional or institution (, PA, MOBILITY ENGINEER, urgent care, hospital, or penitentiary...) When possible be specific @ -No Did you speak to anyone other than the patient for history (EMS, parent, family, police, friend...)? What history was obtained from this source @ -No Did you review nursing and triage notes (agree or disagree)? Why? @ -I reviewed and agree with nursing and triage notes Were old charts reviewed (outside hosp., previous admission, EMS record, old EKG, old radiological studies, urgent care reports/EKG's, penitentiary records)? Report findings @ -No old charts were reviewed Differential Diagnosis (chest pain, altered mental status, abdominal pain women, abdominal pain men, vaginal bleeding, musculoskeletal, weakness, fever, dyspnea , syncope, headache, dizziness, GI bleed, back pain, seizure, CVA, palpatations, mental health)? @ -Differential Chest Pain: Stable Angina, Unstable Angina, STEMI, NSTEMI Aortic Dissection, Pneumothorax, Musculoskeletal, Esophageal Spasm GERD, Cholecystitis, Pancreatitis, Zoster, this is not meant to be an all-inclusive list. EKG interpreted by me (3pts min.). @ -See above X-rays interpreted by me (1pt min.). @ -Chest x-ray shows no acute processes CT interpreted by me (1pt min.). @ -CT abdomen pelvis shows hydropic gallbladder with signs of choledocholithiasis. U/S interpreted by me (1pt. min.). @ -None done What testing was considered but not performed or refused? (CT, X-rays, U/S, labs)? Why? @ -None What meds were considered but not given or refused? Why? @ -None Was smoking cessation discussed for >3mins.? @ -No Were there social determinants of health that impacted care today? How? (Homelessness, low income, unemployed, alcoholism, drug addiction, transportation, low edu. Level, literacy, decrease access to med. care, halfway, rehab)? @ -No Was there de-escalation of care discussed even if they declined (Discuss DNR or withdrawal of care, Hospice)? DNR status @ -No What co-morbidities impacted this encounter? (DM, HTN, Smoking, COPD, CAD, Cancer, CVA, ARF, Chemo, Hep., AIDS, mental health diagnosis, sleep apnea, morbid obesity)? @ -None Was patient admitted / discharged? Hospital course, mention meds given and route, prescriptions, significant lab abnormalities, going to OR and other pertinent info. @ -74-year-old female with epigastric abdominal pain and midthoracic back pain. Vital signs stable. Patient abdomen is soft nonsurgical. Laboratory evalua tion shows hyperbilirubinemia and elevated liver enzymes. Chest x-ray nonacute. Troponin is negative. Urinalysis negative. CT shows hydropic gallbladder with evidence of choledocholithiasis. Case discussed with general surgery request patient be admitted to medicine. GI notified for ERCP Did you discuss the management of the patient with other professionals (professionals i.e. , PA, MOBILITY ENGINEER, lab, RT, psych nurse, clinical social worker, supply technician, teacher, forward air controller/air officer, home health care case manager)? Give summary @ -See above. Was critical care preformed (if so, how long)? @ -No Undiagnosed new problem with uncertain prognosis? @ -No Drug Therapy requiring intensive monitoring for toxicity (Heparin, Nitro, Ins ulin, Cardizem)? @ -No Were any procedures done? @ -No Diagnosis/symptom? Acute, or Chronic, or Acute on Chronic? Uncomplicated (without systemic symptoms) or Complicated (systemic symptoms)? @ -Choledocholithiasis Side effects of treatment? @ -No Exacerbation, Progression, or Severe Exacerbation? @ -No Poses a threat to life or bodily function? How? (Chest pain, USA, NH, pneumonia, PE, COPD, DKA, ARF, appy, cholecystitis, CVA, Diverticulitis, Homicidal, Suicidal, threat to staff... and all critical care pts) @ -yes - Lab Data Result diagrams: 03/30/25 15:45 03/30/25 15:45 Lab Results 03/30/25 03/30/25 03/30/25 Range/Units 15:45 15:45 15:45 WBC 9.51 (4.50-10.00) 10*3/uL RBC 4.43 (4.10-5.20) 10*6/uL Hgb 12.9 (12.0-15.0) g/dL Hct 37.9 (37.2-46.3) % MCV 85.6 (80.0-97.0) fL MCH 29.1 (27.0-32.0) pg MCHC 34.0 (32.0-37.0) g/dL Plt Count 338 (140-440) 10*3/uL MPV 8.5 L (9.5-12.2) fL Immature Gran % (Auto) 1.1 % Neutrophils % 83.7 % Lymphocytes % 8.9 % Monocytes % 4.9 % Eosinophils % 0.9 % Basophils % 0.5 % Immature Gran # 0.10 H (0.00-0.04) 10*3/uL Neutrophils # 7.95 H (1.80-7.70) 10*3/uL Lymphocytes # 0.85 L (0.90-5.00) 10*3/uL Monocytes # 0.47 (0.20-1.00) 10*3/uL Eosinophils # 0.09 (0.04-0.35) 10*3/uL Basophils # 0.05 (0.00-0.10) 10*3/uL PT 10.7 (10.0-12.5) sec INR 1.0 (<1.2) APTT 24.2 (22.0-30.0) sec Sodium 135 L (137-145) mmol/L Potassium 3.3 L (3.5-5.1) mmol/L Chloride 98 (98-107) mmol/L Carbon Dioxide 27 (22-30) mmol/L Anion Gap 10 mmol/L BUN 6 L (7-17) mg/dL Creatinine 0.53 (0.52-1.04) mg/dL Est GFR (CKD-EPI)AfAm >90 (>60 ml/min/1.73 sqM) Est GFR (CKD-EPI)NonAf >90 (>60 ml/min/1.73 sqM) Glucose 142 H (74-99) mg/dL Plasma Lactic Acid Serge (0.7-2.0) mmol/L Calcium 9.0 (8.4-10.2) mg/dL Total Bilirubin 4.2 H (0.2-1.3) mg/dL AST 68 H (14-36) U/L ALT 105 H (4-34) U/L Alkaline Phosphatase 422 H (38-126) U/L Troponin I (0.000-0.034) ng/mL NT-Pro-B Natriuret Pep 76 pg/mL Total Protein 6.5 (6.3-8.2) g/dL Albumin 3.6 (3.5-5.0) g/dL Urine Color Urine Appearance (Clear) Urine pH (5.0-8.0) Ur Specific [place] (1.001-1.035) Urine Protein (Negative) Urine Glucose (UA) (Negative) Urine Ketones (Negative) Urine Blood (Negative) Urine Nitrite (Negative) Urine Bilirubin (Negative) Urine Urobilinogen (<2.0) mg/dL Ur Leukocyte Esterase (Negative) 03/30/25 03/30/25 03/30/25 Range/Units 15:45 15:45 17:20 WBC (4.50-10.00) 10*3/uL RBC (4.10-5.20) 10*6/uL Hgb (12.0-15.0) g/dL Hct (37.2-46.3) % MCV (80.0-97.0) fL MCH (27.0-32.0) pg MCHC (32.0-37.0) g/dL Plt Count (140-440) 10*3/uL MPV (9.5-12.2) fL Immature Gran % (Auto) % Neutrophils % % Lymphocytes % % Monocytes % % Eosinophils % % Basophils % % Immature Gran # (0.00-0.04) 10*3/uL Neutrophils # (1.80-7.70) 10*3/uL Lymphocytes # (0.90-5.00) 10*3/uL Monocytes # (0.20-1.00) 10*3/uL Eosinophils # (0.04-0.35) 10*3/uL Basophils # (0.00-0.10) 10*3/uL PT (10.0-12.5) sec INR (<1.2) APTT (22.0-30.0) sec Sodium (137-145) mmol/L Potassium (3.5-5.1) mmol/L Chloride (98-107) mmol/L Carbon Dioxide (22-30) mmol/L Anion Gap mmol/L BUN (7-17) mg/dL Creatinine (0.52-1.04) mg/dL Est GFR (CKD-EPI)AfAm (>60 ml/min/1.73 sqM) Est GFR (CKD-EPI)NonAf (>60 ml/min/1.73 sqM) Glucose (74-99) mg/dL Plasma Lactic Acid Esrge 1.4 (0.7-2.0) mmol/L Calcium (8.4-10.2) mg/dL Total Bilirubin (0.2-1.3) mg/dL AST (14-36) U/L ALT (4-34) U/L Alkaline Phosphatase (38-126) U/L Troponin I <0.012 (0.000-0.034) ng/mL NT-Pro-B Natriuret Pep pg/mL Total Protein (6.3-8.2) g/dL Albumin (3.5-5.0) g/dL Urine Color Yellow Urine Appearance Clear (Clear) Urine pH 6.5 (5.0-8.0) Ur Specific [place] 1.022 (1.001-1.035) Urine Protein Negative (Negative) Urine Glucose (UA) Negative (Negative) Urine Ketones Negative (Negative) Urine Blood Negative (Negative) Urine Nitrite Negative (Negative) Urine Bilirubin Negative (Negative) Urine Urobilinogen <2.0 (<2.0) mg/dL Ur Leukocyte Esterase Negative (Negative) Disposition Clinical Impression: Choledocholithiasis Disposition: ADMITTED IP TO THIS HOSP Condition: Fair Referrals: Pablo Caldwell MD [REFERRING] - 1-2 days Decision Time: 18:47
[2025-03-30 16:08] LABS: Basophils # (A) 0.05 10*3/uL (0.00-0.10); Basophils % (A) 0.5 %; Eosinophils # (A) 0.09 10*3/uL (0.04-0.35); Eosinophils % (A) 0.9 %; HCT 37.9 % (37.2-46.3); HGB 12.9 g/dL (12.0-15.0); Lymphocytes # (A) 0.85 10*3/uL (0.90-5.00); Lymphocytes % (A) 8.9 %; MCH 29.1 pg (27.0-32.0); MCV 85.6 fL (80.0-97.0); Mean Platelet Volume 8.5 fL (9.5-12.2); Monocytes # (A) 0.47 10*3/uL (0.20-1.00); Monocytes % (A) 4.9 %; Neutrophils # (A) 7.95 10*3/uL (1.80-7.70); Neutrophils % (A) 83.7 %; Platelet Count 338 10*3/uL (140-440); RBC 4.43 10*6/uL (4.10-5.20); WBC 9.51 10*3/uL (4.50-10.00)
[2025-03-30] MEDS: HYOSCYAMINE SULFATE 0.125 MG TAB PO STA (16:09)
[2025-03-30] MEDS: MAG HYDROX/AL HYDROX/SIMETH 30 ML CUP PO PRN (16:09)
[2025-03-30] MEDS: LIDOCAINE VISCOUS 2% 15 ML CUP PO ONE (16:09)
[2025-03-30 16:14] LABS: ALT 105 U/L (4-34); AST 68 U/L (14-36); African American GFR (CKD) >90 (>60 ml/min/1.73 sqM); Albumin 3.6 g/dL (3.5-5.0); Alkaline Phosphatase 422 U/L (38-126); Anion Gap 10 mmol/L; Blood Urea Nitrogen 6 mg/dL (7-17); Carbon Dioxide 27 mmol/L (22-30); Chloride 98 mmol/L (98-107); Glucose 142 mg/dL (74-99); Non-African American GFR(CKD) >90 (>60 ml/min/1.73 sqM); Potassium 3.3 mmol/L (3.5-5.1); Sodium 135 mmol/L (137-145); Total Bilirubin 4.2 mg/dL (0.2-1.3); Total Protein 6.5 g/dL (6.3-8.2)
[2025-03-30 16:21] LABS: Partial Thromboplastin Time 24.2 sec (22.0-30.0); Prothrombin Time 10.7 sec (10.0-12.5)
--- NOTE | 2025-03-30 16:21 | XR ---
EXAMINATION TYPE: XR chest 2V DATE OF EXAM: 03/30/2025 4:13 PM COMPARISON: Chest radiographs from 07/17/2021 TECHNIQUE: XR chest 2V Frontal and lateral views of the chest. CLINICAL INDICATION:Female, 74 years old with history of chest, epigastric and thoracic back pain; FINDINGS: Lungs/Pleura: There is no evidence of pleural effusion, focal consolidation, or pneumothorax. Pulmonary vascularity: Unremarkable. Heart/mediastinum: Cardiomediastinal silhouette is unremarkable. Atherosclerotic calcifications are seen in the aorta. Musculoskeletal: Multiple level degenerative disc disease changes seen throughout the spine. Right sh oulder arthropathy with spurring. IMPRESSION: No acute cardiopulmonary disease/process. [facility], , 03/30/2025 4:19 PM
[2025-03-30 16:23] LABS: NT-Pro-B-Type Natriuretic Pept 76 pg/mL
--- NOTE | 2025-03-30 17:22 | CT ---
EXAMINATION TYPE: CT abdomen pelvis w con CT DLP: 1768.1 mGycm, Automated exposure control for dose reduction was used. DATE OF EXAM: 03/30/2025 4:59 PM COMPARISON: Non- CLINICAL INDICATION:Female, 74 years old with history of chest, epigastric and thoracic back pain; ab dominal pain, c/o burning sensation TECHNIQUE: Standard CT of the abdomen and pelvis following the administration of 100 cc of Isovue 3 00 IV contrast material. Coronal and sagittal reformats were performed. FINDINGS: LOWER CHEST: Minimal bibasilar linear subsegmental atelectasis. ABDOMEN LIVER: Right hepatic lobe 1.2 cm cyst. GALLBLADDER AND BILE DUCTS: Hydropic gallbladder measuring at least 10 x 5 cm. No wall thickening or surrounding inflammatory changes identified. Extra hepatic biliary duct dilatation with the common bi le duct measuring up to 11 mm at the pancreatic head without biliary ductal calcification identified. No significant intrahepatic biliary ductal dilatation. PANCREAS: The appearance of the pancreatic head and uncinate process. SPLEEN: Unremarkable. ADRENAL GLANDS: Unremarkable. KIDNEYS AND URETERS: No evidence of hydronephrosis or renal calculus. The kidneys enhance symmetrical ly. Contrast is demonstrated within both collecting systems and proximal ureters on the delayed phase . PELVIS BLADDER: Unremarkable REPRODUCTIVE: The uterus is surgically absent. ABDOMEN & PELVIS STOMACH AND BOWEL: Stomach and duodenum are unremarkable. Scattered distal colonic diverticulosis wit hout evidence for acute diverticulitis. No focal bowel wall thickening or surrounding inflammatory ch anges. The appendix is within normal limits. No evidence of bowel obstruction. PERITONEUM: No evidence of pneumoperitoneum or free fluid. VASCULATURE: Mild atherosclerotic calcifications are present throughout the abdominal aorta and its b ranches. No evidence of aortic aneurysm. Pelvic phleboliths. MUSCULOSKELETAL: No acute osseous abnormalities. Mild degenerative changes of the bilateral SI joints . Grade 1 anterolisthesis of L4 on L5. No pars defects. Mild to moderate multilevel degenerative disc disease. LYMPH NODES: No evidence for lymphadenopathy. SOFT TISSUE/ABDOMINAL WALL: Unremarkable IMPRESSION: Hydropic gallbladder without surrounding inflammatory changes. Extrahepatic biliary duct dilatation w ith the common bile duct measuring up to 11 mm at the pancreatic head. Raises concern for possible ch oledocholithiasis. Correlation with biliary labs is recommended. Consider further evaluation with [facility] P/ERCP. [facility], , 03/30/2025 5:20 PM
[2025-03-30 17:46] LABS: Appearance,Urine Clear (Clear); Bilirubin,Urine Negative (Negative); Blood,Urine Negative (Negative); Color,Urine Yellow; Glucose,Urine (UA) Negative (Negative); Ketones,Urine Negative (Negative); Leukocyte Esterase,Urine Negative (Negative); Nitrite,Urine Negative (Negative); PH, Urine 6.5 (5.0-8.0); Protein,Urine Negative (Negative); Specific Gravity,Urine 1.022 (1.001-1.035); Urobilinogen,Urine <2.0 mg/dL (<2.0)
[2025-03-30] MEDS ORDERED: ACETAMINOPHEN TAB 325 MG TAB PO PRN (18:42)
[2025-03-30] MEDS ORDERED: MORPHINE SULFATE 4 MG/ML SYRINGE IV PRN (18:42)
[2025-03-30] MEDS ORDERED: NALOXONE 0.4 MG/ML 1 ML VIAL IV PRN (18:42)
[2025-03-30] MEDS: SODIUM CHLORIDE 0.9% 1,000 ML IV SCH (18:54)
[2025-03-30] MEDS ORDERED: ONDANSETRON 4 MG/2 ML VIAL IVP PRN (19:51)
[2025-03-30] MEDS ORDERED: AMITRIPTYLINE HCL 25 MG TAB PO PRN (19:54)
[2025-03-30] MEDS: PIPERACILLIN-TAZOBACTAM 3.375 GM in SODIUM CHLORIDE 0.9% 100 ML IVPB SCH (20:32)
--- NOTE | 2025-03-30 22:00 | P.HPIM ---
History of Present Illness H&P Date: 03/30/25 Chief Complaint: Abdominal, flank pain 74-year-old woman with a medical history of hypothyroidism, depression, obesity class I presented for evaluation of abdominal/flank pain. The pain was of sudden onset today, located in the epigastrium with radiation to the back. She did go to urgent care for this initially but there was concern for acute coronary syndrome and therefore patient was brought into the hospital by EMS for further evaluation. She denies any other symptoms including nausea, vomiting, diarrhea, fevers, chills, palpitations, syncope, diaphoresis, hematuria, dysuria. In the emergency room, patient was afebrile, 118/61, heart rate 70, 97% on room air. CBC was unremarkable. Basic metabolic panel showed hyponatremia to 135, hypokalemia 3.3, otherwise unremarkable. Liver function tests were significant for total bilirubin of 4.2, AST of 68, ALT of 105, alkaline phosphatase of 422. Troponin was less than 0.012. BNP was 76. Urinalysis is unremarkable. EKG showed normal sinus rhythm with first-degree AV block, right axis deviation with right bundle jerrod block, no evidence of ischemia. Chest x-ray is little bit overexposed but appears unremarkable for acute cardiopulmonary process versus mildly increased opacities in the lower lobes given the exposure of the x-ray. Abdomen/pelvis CT demonstrates hydropic gallbladder without surrounding inflammatory changes, extrahepatic biliary duct dilation with the common bile duct measuring up to 11 mm of the pancreatic head. Case was discussed with the emergency room provider and decision was made to move the patient to the hospital for further characterization of her liver function abnormalities and CBD dilation. All Systems reviewed and pertinent positives and negatives noted in HPI, all other symptoms are negative Gen: In NAD, non-toxic HEENT: normocephalic, atraumatic, hearing acuity is intant, mucous membranes moist CVS: perfusing all extremities well, no pitting edema, regular rate and rhythm without murmurs Respiratory: symmetric chest expansion, no accessory muscle use, clear to auscultation bilaterally GI: soft, nondistended, tenderness to palpation of the epigastrium and left flank, no right upper quadrant pain : no suprapubic tenderness, no CVA tenderness MSK/Derm: no rashes, cyanosis Neuro: CN II-XII intact, no motor weakness, Psych: cooperative, euthymic mood, judgment and insight is intact Labs and imaging as above Assessment/plan: Cholestatic liver injury Common bile duct dilation (Patient's pain profile has significantly improved, it is possible she did have a CBD stone that has passed) - Admit to inpatient - General Surgery consult, GI consult - MRCP is ordered - N.p.o. with IV fluids, lactated Ringer's at 130 cc/h - Pain/nausea control: Zofran as needed, Dilaudid as needed - Follow-up a.m. labs Hypothyroidism Depression Obesity class I -Home medications are reviewed and reconciled - Diet and exercise counseling on discharge, outpatient follow-up with weight loss plan Patient is full code Past Medical History Past Medical History: GERD/Reflux Additional Past Medical History / Comment(s): RBB History of Any Multi-Drug Resistant Organisms: None Reported Past Surgical History: Joint Replacement, Orthopedic Surgery Past Psychological History: No Psychological Hx Reported Smoking Status: Never smoker Past Alcohol Use History: None Reported Past Drug Use History: None Reported Medications and Allergies Home Medications Medication Instructions Recorded Confirmed Type Levothyroxine Sodium 125 mcg PO DAILY 06/18/23 03/30/25 History Amitriptyline HCl [Elavil] 25 mg PO HS PRN 03/30/25 03/30/25 History FLUoxetine HCL [PROzac] 10 mg PO DAILY 03/30/25 03/30/25 History Allergies Allergy/AdvReac Type Severity Reaction Status Date / Time No Known Allergies Allergy Verified 03/30/25 16:28 Physical Exam Osteopathic Statement: *. No significant issues noted on an osteopathic structural exam other than those noted in the History and Physical/Consult. Vitals: Vital Signs Temp Pulse Resp BP Pulse Ox 03/30/25 19:21 99.0 F 104 H 16 134/76 99 03/30/25 17:25 86 18 127/50 98 03/30/25 15:24 98.4 F 70 20 118/61 97 Intake and Output 03/30/25 03/30/25 03/30/25 06:59 14:59 22:59 Other: Weight 95.254 kg Results CBC & Chem 7: 03/30/25 15:45 03/30/25 15:45 Labs: Abnormal Lab Results - Last 24 Hours (Table) 03/30/25 03/30/25 Range/Units 15:45 15:45 MPV 8.5 L (9.5-12.2) fL Immature Gran # 0.10 H (0.00-0.04) 10*3/uL Neutrophils # 7.95 H (1.80-7.70) 10*3/uL Lymphocytes # 0.85 L (0.90-5.00) 10*3/uL Sodium 135 L (137-145) mmol/L Potassium 3.3 L (3.5-5.1) mmol/L BUN 6 L (7-17) mg/dL Glucose 142 H (74-99) mg/dL Total Bilirubin 4.2 H (0.2-1.3) mg/dL AST 68 H (14-36) U/L ALT 105 H (4-34) U/L Alkaline Phosphatase 422 H (38-126) U/L
[2025-03-31] MEDS ORDERED: PIPERACILLIN-TAZOBACTAM 3.375 GM in SODIUM CHLORIDE 0.9% 100 ML IVPB SCH
[2025-03-31] MEDS: LEVOTHYROXINE 125 MCG TAB PO SCH (05:19)
[2025-03-31 08:49] LABS: Basophils # (A) 0.02 10*3/uL (0.00-0.10); Basophils % (A) 0.2 %; Eosinophils # (A) 0.08 10*3/uL (0.04-0.35); Eosinophils % (A) 0.9 %; HGB 11.9 g/dL (12.0-15.0); Lymphocytes # (A) 0.92 10*3/uL (0.90-5.00); Lymphocytes % (A) 10.3 %; MCH 29.1 pg (27.0-32.0); MCV 85.6 fL (80.0-97.0); Mean Platelet Volume 8.5 fL (9.5-12.2); Monocytes # (A) 0.71 10*3/uL (0.20-1.00); Neutrophils % (A) 79.9 %; Platelet Count 327 10*3/uL (140-440); RBC 4.09 10*6/uL (4.10-5.20); RDW 14.6 % (11.5-14.5); WBC 8.89 10*3/uL (4.50-10.00)
[2025-03-31 09:27] LABS: ALT 98 U/L (4-34); AST 74 U/L (14-36); African American GFR (CKD) >90 (>60 ml/min/1.73 sqM); Albumin 3.1 g/dL (3.5-5.0); Alkaline Phosphatase 364 U/L (38-126); Anion Gap 11 mmol/L; Blood Urea Nitrogen 6 mg/dL (7-17); Calcium 8.6 mg/dL (8.4-10.2); Carbon Dioxide 26 mmol/L (22-30); Chloride 103 mmol/L (98-107); Glucose 88 mg/dL (74-99); Lipase 74 U/L (23-300); Non-African American GFR(CKD) 90 (>60 ml/min/1.73 sqM); Potassium 3.2 mmol/L (3.5-5.1); Sodium 140 mmol/L (137-145); Total Bilirubin 6.2 mg/dL (0.2-1.3); Total Protein 5.8 g/dL (6.3-8.2)
--- NOTE | 2025-03-31 10:24 | US ---
EXAMINATION TYPE: US gallbladder DATE OF EXAM: 03/31/2025 COMPARISON: 03/30/25 CLINICAL INDICATION: Female, 74 years old with history of Jaundice, abdominal pain; Distended GB on C T, Abd pain, pre-op TECHNIQUE: Grayscale and color Doppler imaging of the right upper quadrant was performed. FINDINGS: EXAM MEASUREMENTS: Liver Length: 17.9 cm Gallbladder Wall: 0.3 cm CBD: 0.9 cm Right Kidney: 10.1x4.7x5.5 cm INCIDENT RESPONSE SPECIALIST NOTES: Pancreas: Tail obscured by overlying bowel gas Liver: increased size and echogenicity Gallbladder: wall measures at upper limits, sludge Evidence for sonographic Bruno's sign: No CBD: dilated Right Kidney: wnl exam very limited by habitus and bowel gas The visualized portions of the pancreas unremarkable. The liver demonstrates top end of normal withou t focal lesion are surface nodularity. Gallbladder demonstrates sludge without shadowing calculi. Gal lbladder is distended without wall thickening. Negative sonographic Bruno sign. Dilated common bile duct redemonstrated. Right kidney demonstrates no hydronephrosis, shadowing calculus or solid mass. IMPRESSION: 1. Dilated common bile duct redemonstrated. Correlation with biliary levels is recommended. Consider further evaluation with MRCP/ERCP. 2. Distended gallbladder with sludge. No ultrasound evidence for acute cholecystitis. [facility], , 03/31/2025 10:21 AM
--- NOTE | 2025-03-31 10:52 | P.CRDCN ---
History of Present Illness Consult date: 03/31/25 Reason for Consult (text): Cardiac risk assessment, abnormal EKG History of present illness: This is 74-year-old female follows with a senior report developer in [place] with past medical history of right bundle branch block, hypothyroidism. We have been asked to evaluate the patient for cardiac risk assessment and abnormal EKG. Patient states that she came into the hospital due to lower chest pain and epigastric pain radiating to her back. She was apparently at the urgent care and was sent into the hospital to rule out acute coronary syndrome. Blood pressure 122/78, heart rate 85, pulse ox 97% on room air. -EKG: Sinus rhythm with right bundle branch block. -Chest x-ray: No acute process. -CT abdomen and pelvis: Hydropic gallbladder without surrounding inflammatory changes. Extrahepatic biliary duct dilatation and common bile duct measuring 11 mm at the pancreatic head. Concern for choledocholithiasis. -Laboratory studies: WBC 8.8, hemoglobin 11.9, total bilirubin 6.2, AST 74, ALT 98, alkaline phosphatase 364. Troponin negative x 1. proBNP 76. Urinalysis negative. -Home cardiac medications: None - Lexiscan Cardiolite stress test performed 08/05/2022 at [facility] was negative for ischemia. Review Of Systems: At the time of my exam: CONSTITUTIONAL: Denies fever or chills. HEENT: Denies blurred vision, vision changes, or eye pain. Denies hemoptysis CARDIOVASCULAR: Denies chest pain. Denies orthopnea. Denies PND. Denies palpitations RESPIRATORY: Denies shortness of breath. GASTROINTESTINAL: Denies abdominal pain. Denies nausea or vomiting. HEMATOLOGIC: Denies bleeding disorders. GENITOURINARY: Denies any blood in urine. SKIN: Denies puritis. Denies rash. Physical examination: Gen: This is 74-year-old female in no acute distress VS: reviewed HEENT: Head is atraumatic, normocephalic. Pupils equal, round. Sclerae is anicteric. NECK: Supple. No JVD. LUNGS: Clear to auscultation. No wheezes or rhonchi. No intercostal retractions. HEART: Regular rate and rhythm. No murmur. ABDOMEN: Soft No tenderness. EXTREMITIES: No pedal edema. No calf tenderness. NEUROLOGICAL: Patient is awake, alert and oriented x3. Assessment: Known right bundle branch block Choledocholithiasis Hypothyroidism Plan: Obtain 2-D echocardiogram and Doppler study to assess cardiac structure and function Further recommendations to follow based upon clinical course Thank you kindly for this consultation. Nurse practitioner note has been reviewed, I agree with documented findings and plan of care. Patient was seen and examined. Past Medical History Past Medical History: GERD/Reflux Additional Past Medical History / Comment(s): RBB History of Any Multi-Drug Resistant Organisms: None Reported Past Surgical History: Hysterectomy, Joint Replacement, Orthopedic Surgery Past Anesthesia/Blood Transfusion Reactions: No Reported Reaction Past Psychological History: No Psychological Hx Reported Smoking Status: Never smoker Past Alcohol Use History: None Reported Past Drug Use History: None Reported Medications and Allergies Home Medications Medication Instructions Recorded Confirmed Type Levothyroxine Sodium 125 mcg PO DAILY 06/18/23 03/30/25 History Amitriptyline HCl [Elavil] 25 mg PO HS PRN 03/30/25 03/30/25 History FLUoxetine HCL [PROzac] 10 mg PO DAILY 03/30/25 03/30/25 History Allergies Allergy/AdvReac Type Severity Reaction Status Date / Time No Known Allergies Allergy Verified 03/30/25 16:28 Physical Exam Vitals: Vital Signs Temp Pulse Pulse Resp BP BP Pulse Ox 03/31/25 08:31 98.3 F 85 14 122/78 97 03/31/25 03:54 98.5 F 96 18 114/69 92 L 03/31/25 01:04 98.5 F 102 H 19 117/69 94 L 03/30/25 23:26 98.6 F 103 H 18 116/47 100 03/30/25 19:21 99.0 F 104 H 16 134/76 99 03/30/25 17:25 86 18 127/50 98 03/30/25 15:24 98.4 F 70 20 118/61 97 Intake and Output 03/30/25 03/31/25 03/31/25 22:59 06:59 14:59 Other: Voiding Method Toilet # Voids 1 Weight 95.254 kg 95.6 kg Results 03/31/25 07:47 03/31/25 07:47 Cardiac Enzymes 03/30/25 03/30/25 Range/Units 15:45 15:45 AST 68 H (14-36) U/L Troponin I <0.012 (0.000-0.034) ng/mL Coagulation 03/30/25 Range/Units 15:45 PT 10.7 (10.0-12.5) sec APTT 24.2 (22.0-30.0) sec CBC 03/30/25 03/31/25 Range/Units 15:45 07:47 WBC 9.51 8.89 (4.50-10.00) 10*3/uL RBC 4.43 4.09 L (4.10-5.20) 10*6/uL Hgb 12.9 11.9 L (12.0-15.0) g/dL Hct 37.9 35.0 L (37.2-46.3) % Plt Count 338 327 (140-440) 10*3/uL Comprehensive Metabolic Panel 03/30/25 Range/Units 15:45 Sodium 135 L (137-145) mmol/L Potassium 3.3 L (3.5-5.1) mmol/L Chloride 98 (98-107) mmol/L Carbon Dioxide 27 (22-30) mmol/L BUN 6 L (7-17) mg/dL Creatinine 0.53 (0.52-1.04) mg/dL Glucose 142 H (74-99) mg/dL Calcium 9.0 (8.4-10.2) mg/dL AST 68 H (14-36) U/L ALT 105 H (4-34) U/L Alkaline Phosphatase 422 H (38-126) U/L Total Protein 6.5 (6.3-8.2) g/dL Albumin 3.6 (3.5-5.0) g/dL Current Medications Generic Name Dose Route Start Last Admin Trade Name Freq PRN Reason Stop Dose Admin Acetaminophen 650 mg 03/30/25 18:42 Acetaminophen Tab 325 Mg Tab PO Q6HR PRN Mild Pain or Fever > 100.5 Hydrocodone Bitart/Acetaminophen 1 each 03/30/25 19:51 Hydrocodone/Apap 5-325mg 1 Each Tab PO Q4HR PRN Moderate Pain (Scale 4 to 6) Al Hydroxide/Mg Hydroxide 30 ml 03/30/25 15:47 03/30/25 16:09 Mag Hydrox/Al Hydrox/Simeth 30 Ml Cup PO 30 ml Q4HR PRN Administration GI Upset Amitriptyline HCl 25 mg 03/30/25 19:54 Amitriptyline Hcl 25 Mg Tab PO HS PRN Insomnia Fluoxetine HCl 10 mg 03/31/25 09:00 Fluoxetine Hcl 10 Mg Cap PO DAILY DOMENICO Sodium Chloride 1,000 mls @ 130 mls/hr 03/30/25 18:45 03/31/25 03:00 Saline 0.9% IV 130 mls/hr .[id number] DOMENICO Administration Piperacillin Sod/Tazobactam 100 mls @ 25 mls/hr 03/30/25 21:00 03/31/25 05:18 Sod 3.375 gm/ Sodium Chloride IVPB 25 mls/hr Q8H DOMENICO Administration Protocol Levothyroxine Sodium 125 mcg 03/31/25 06:30 03/31/25 05:19 Levothyroxine 125 Mcg Tab PO 125 mcg 0630 DOMENICO Administration Morphine Sulfate 4 mg 03/30/25 18:42 Morphine Sulfate 4 Mg/Ml Syringe IV Q4HR PRN Severe Pain (Scale 7 to 10) Naloxone HCl 0.2 mg 03/30/25 18:42 Naloxone 0.4 Mg/Ml 1 Ml Vial IV Q2M PRN Opioid Reversal Ondansetron HCl 4 mg 03/30/25 19:51 Ondansetron 4 Mg/2 Ml Vial IVP Q8HR PRN Nausea And Vomiting Intake and Output 03/30/25 03/31/25 03/31/25 22:59 06:59 14:59 Other: Voiding Method Toilet # Voids 1 Weight 95.254 kg 95.6 kg 03/31/25 07:47 03/30/25 15:45
--- NOTE | 2025-03-31 11:43 | P.GSHP ---
History of Present Illness H&P Date: 03/31/25 CHIEF COMPLAINT: Abdominal pain HISTORY OF PRESENT ILLNESS: This is a 74-year-old female who presented with pain across the rib cage and into the back. Patient reports she has not been feeling well for about a week. Initially she thought she had the flu. She reports that her skin was itchy she has been having dark urine and then yesterday she started having severe pain across the rib cage epigastric area and into the back. She was nauseous. She reports decreased appetite. She was having sweats. She came into the ER for further evaluation. CT scan had reported a hydropic gallbladder with surrounding inflammatory changes. Extrahepatic biliary duct dilatation with common bile duct measuring 11 mm at the pancreatic head raises concerns for possible choledocholithiasis. Patient was found to have elevated total bilirubin and LFTs. She is being evaluated by GI service. PAST MEDICAL HISTORY: See list. PAST SURGICAL HISTORY: See list. MEDICATIONS: See list. ALLERGIES: See list. SOCIAL HISTORY: No illicit drug use. REVIEW OF SYSTEMS: CONSTITUTIONAL: Denies fever or chills. HEENT: Denies blurred vision, vision changes, or eye pain. Denies hemoptysis ENDOCRINE: Denies heat or cold intolerance. CARDIOVASCULAR: Denies chest pain or pressure. RESPIRATORY: No shortness of breath. GASTROINTESTINAL: Please refer to HPI otherwise unremarkable. NEURO: Denies history of seizures. PSYCH: No depression or suicidal ideation HEMATOLOGIC: Denies bleeding disorders. LYMPHATIC: The patient denies any lumps and bumps around the neck. GENITOURINARY: Denies any blood in urine or increased urinary frequency. MUSCULOSKELETAL: Denies myalgias. Denies joint swelling. Denies decreased range of motion beyond patients baseline. SKIN: Denies pruitis. Denies rash. PHYSICAL EXAM: VITAL SIGNS: Reviewed GENERAL: Well-developed in no acute distress. HEENT: Scleral icterus present. Extraocular movements grossly intact. Moist buccal mucosa. Head is atraumatic, normocephalic. Hears conversational speech. No nasal drainage. NECK: Supple without lymphadenopathy. CHEST: Non-labored respirations and equal bilateral excursions. CARDIOVASCULAR: Palpable 2+ radial pulses. ABDOMEN: Soft. Nondistended. Tenderness right upper quadrant with palpation MUSCULOSKELETAL: No clubbing or cyanosis. NEUROLOGIC: No focal or lateralizing signs. Cranial nerves II through XII patricia ssly intact. PSYCH: Appropriate affect. Alert and oriented to person, place and time. SKIN: Jaundice LABORATORY DATA: WBC 8.89 Hgb 11.9 platelets 327 Sodium 140 potassium is 3.2 creatinine 0.60 Total bilirubin 4.2 up to 6.2 AST 74 ALT 98 alk phos 364 IMAGING: CT scan abdomen pelvis reports hydropic gallbladder with surrounding inflammatory changes. Extrahepatic biliary duct dilatation with common bile duct measuring up to 11 mm at the pancreatic head. Raises concern for possible choledocholithiasis. Gallbladder ultrasound reports a dilated common bile duct redemonstrated. Correlation with biliary levels is recommended. Distended gallbladder with sludge. No ultrasound evidence for acute cholecystitis. ASSESSMENT: 1. Acute cholecystitis. Hydropic gallbladder with surrounding inflammatory changes noted on CT scan. 2. Suspected choledocholithiasis. Elevated total bilirubin and LFTs and dilated common bile duct noted on imaging PLAN: - Await further GI recommendations - Patient scheduled for Robotic cholecystectomy tomorrow, 04/01/[address] Tejada - Continue antibiotics - Consult cardiology for cardiac risk assessment - 2D echo ordered - Continue IV fluids - Keep patient n.p.o. for now Physician Electronic Sales And Service Technician note has been reviewed by physician. Signing provider agrees with the documented findings, assessment, and plan of care. Past Medical History Past Medical History: GERD/Reflux Additional Past Medical History / Comment(s): RBB History of Any Multi-Drug Resistant Organisms: None Reported Past Surgical History: Hysterectomy, Joint Replacement, Orthopedic Surgery Past Anesthesia/Blood Transfusion Reactions: No Reported Reaction Past Psychological History: No Psychological Hx Reported Smoking Status: Never smoker Past Alcohol Use History: None Reported Past Drug Use History: None Reported Medications and Allergies Home Medications Medication Instructions Recorded Confirmed Type Levothyroxine Sodium 125 mcg PO DAILY 06/18/23 03/30/25 History Amitriptyline HCl [Elavil] 25 mg PO HS PRN 03/30/25 03/30/25 History FLUoxetine HCL [PROzac] 10 mg PO DAILY 03/30/25 03/30/25 History Allergies Allergy/AdvReac Type Severity Reaction Status Date / Time No Known Allergies Allergy Verified 03/30/25 16:28 Surgical - Exam Vital Signs Temp Pulse Resp BP Pulse Ox 98.4 F 70 20 118/61 97 03/30/25 15:24 03/30/25 15:24 03/30/25 15:24 03/30/25 15:24 03/30/25 15:24 Results - Labs 03/31/25 07:47 03/31/25 07:47 Abnormal Lab Results - Last 24 Hours (Table) 03/30/25 03/30/25 03/31/25 Range/Units 15:45 15:45 07:47 RBC 4.09 L (4.10-5.20) 10*6/uL Hgb 11.9 L (12.0-15.0) g/dL Hct 35.0 L (37.2-46.3) % MPV 8.5 L 8.5 L (9.5-12.2) fL Immature Gran # 0.10 H 0.06 H (0.00-0.04) 10*3/uL Neutrophils # 7.95 H (1.80-7.70) 10*3/uL Lymphocytes # 0.85 L (0.90-5.00) 10*3/uL Sodium 135 L (137-145) mmol/L Potassium 3.3 L (3.5-5.1) mmol/L BUN 6 L (7-17) mg/dL Glucose 142 H (74-99) mg/dL Total Bilirubin 4.2 H (0.2-1.3) mg/dL AST 68 H (14-36) U/L ALT 105 H (4-34) U/L Alkaline Phosphatase 422 H (38-126) U/L Total Protein (6.3-8.2) g/dL Albumin (3.5-5.0) g/dL 03/31/25 Range/Units 07:47 RBC (4.10-5.20) 10*6/uL Hgb (12.0-15.0) g/dL Hct (37.2-46.3) % MPV (9.5-12.2) fL Immature Gran # (0.00-0.04) 10*3/uL Neutrophils # (1.80-7.70) 10*3/uL Lymphocytes # (0.90-5.00) 10*3/uL Sodium (137-145) mmol/L Potassium 3.2 L (3.5-5.1) mmol/L BUN 6 L (7-17) mg/dL Glucose (74-99) mg/dL Total Bilirubin 6.2 H (0.2-1.3) mg/dL AST 74 H (14-36) U/L ALT 98 H (4-34) U/L Alkaline Phosphatase 364 H (38-126) U/L Total Protein 5.8 L (6.3-8.2) g/dL Albumin 3.1 L (3.5-5.0) g/dL Diabetes panel 03/30/25 03/31/25 Range/Units 15:45 07:47 Sodium 135 L 140 (137-145) mmol/L Potassium 3.3 L 3.2 L (3.5-5.1) mmol/L Chloride 98 103 (98-107) mmol/L Carbon Dioxide 27 26 (22-30) mmol/L BUN 6 L 6 L (7-17) mg/dL Creatinine 0.53 0.60 (0.52-1.04) mg/dL Glucose 142 H 88 (74-99) mg/dL Calcium 9.0 8.6 (8.4-10.2) mg/dL AST 68 H 74 H (14-36) U/L ALT 105 H 98 H (4-34) U/L Alkaline Phosphatase 422 H 364 H (38-126) U/L Total Protein 6.5 5.8 L (6.3-8.2) g/dL Albumin 3.6 3.1 L (3.5-5.0) g/dL Calcium panel 03/30/25 03/31/25 Range/Units 15:45 07:47 Calcium 9.0 8.6 (8.4-10.2) mg/dL Albumin 3.6 3.1 L (3.5-5.0) g/dL Pituitary panel 03/30/25 03/31/25 Range/Units 15:45 07:47 Sodium 135 L 140 (137-145) mmol/L Potassium 3.3 L 3.2 L (3.5-5.1) mmol/L Chloride 98 103 (98-107) mmol/L Carbon Dioxide 27 26 (22-30) mmol/L BUN 6 L 6 L (7-17) mg/dL Creatinine 0.53 0.60 (0.52-1.04) mg/dL Glucose 142 H 88 (74-99) mg/dL Calcium 9.0 8.6 (8.4-10.2) mg/dL Adrenal panel 03/30/25 03/31/25 Range/Units 15:45 07:47 Sodium 135 L 140 (137-145) mmol/L Potassium 3.3 L 3.2 L (3.5-5.1) mmol/L Chloride 98 103 (98-107) mmol/L Carbon Dioxide 27 26 (22-30) mmol/L BUN 6 L 6 L (7-17) mg/dL Creatinine 0.53 0.60 (0.52-1.04) mg/dL Glucose 142 H 88 (74-99) mg/dL Calcium 9.0 8.6 (8.4-10.2) mg/dL Total Bilirubin 4.2 H 6.2 H (0.2-1.3) mg/dL AST 68 H 74 H (14-36) U/L ALT 105 H 98 H (4-34) U/L Alkaline Phosphatase 422 H 364 H (38-126) U/L Total Protein 6.5 5.8 L (6.3-8.2) g/dL Albumin 3.6 3.1 L (3.5-5.0) g/dL
[2025-03-31] MEDS: FLUoxetine HCL 10 MG CAP PO SCH (12:03)
[2025-03-31] MEDS: POTASSIUM CHLORIDE ER 20 MEQ TAB.ER PO STA (12:03)
[2025-03-31] MEDS: ENOXAPARIN 40 MG/0.4 ML SYRINGE SQ SCH (12:07)
--- NOTE | 2025-03-31 13:09 | P.CONS ---
History of Present Illness - Reason for Consult Consult date: 03/31/25 Choledocholithiasis Requesting physician: Brayden Michaud - Chief Complaint Abdominal pain - History of Present Illness This a pleasant 74-year-old female who presented to the emergency room with complaints of abdominal pain. She states that she had abdominal discomfort earlier in the week she also had noticed about a week ago on that her urine was a lot darker, she had light-colored bowel movements. States the abdominal pain went across to her rib cage and into her back it lasted all day yesterday which prompted her for further evaluation by the emergency department. Lab work showed elevated LFTs. She had a CT of the abdomen pelvis that reported CBD dilation and hydropic gallbladder. Patient denies any previous similar symptoms no history of gallbladder disease. Denies any history of liver disease. Past medical history includes hypothyroidism, depression and obesity. Admitting labs WBC 9.5 hemoglobin 12.9 platelet count 338,000 INR 1.0 sodium 135 potassium 3.3 BUN 6 creatinine 0.5 total bilirubin 4.2 AST 68 ALT 105 alkaline phosphatase 422 Patient states pain has improved since she came here with IV pain medication. She states she still has kind of an ache in her back rates it a 4 out of 10. She did also endorse nausea with vomiting yesterday but no further nausea or vomiting today. She states that she did have some chills yesterday denies any known fever. She has been afebrile here. Review of Systems REVIEW OF SYSTEMS: CARDIOPULMONARY: No chest pain or shortness of breath. Gastrointestinal: Abdominal pain with radiation to the back. Nausea with vomiting now resolved. No hematemesis, coffee-ground emesis. No rectal bleeding, or melena. GENITOURINARY: No dysuria or hematuria. MUSCULOSKELETAL: Reports normal range of motion., Joint pain. SKIN: No rashes. No jaundice. ENDOCRINE: No chills, fevers. No excessive weight gain or loss. No polydipsia or polyuria. PSYCHIATRIC: Unremarkable. NEUROLOGY: No change in mental status. Denies dizziness, headache. ENT: Vision unremarkable. CONSTITUTIONAL: No recent weight loss. No fever, chills, night sweats. Past Medical History Past Medical History: GERD/Reflux Additional Past Medical History / Comment(s): RBB History of Any Multi-Drug Resistant Organisms: None Reported Past Surgical History: Hysterectomy, Joint Replacement, Orthopedic Surgery Past Anesthesia/Blood Transfusion Reactions: No Reported Reaction Past Psychological History: No Psychological Hx Reported Smoking Status: Never smoker Past Alcohol Use History: None Reported Past Drug Use History: None Reported Medications and Allergies Home Medications Medication Instructions Recorded Confirmed Type Levothyroxine Sodium 125 mcg PO DAILY 06/18/23 03/30/25 History Amitriptyline HCl [Elavil] 25 mg PO HS PRN 03/30/25 03/30/25 History FLUoxetine HCL [PROzac] 10 mg PO DAILY 03/30/25 03/30/25 History Allergies Allergy/AdvReac Type Severity Reaction Status Date / Time No Known Allergies Allergy Verified 03/30/25 16:28 Physical Exam Vitals: Vital Signs Temp Pulse Pulse Resp BP BP Pulse Ox 03/31/25 08:31 98.3 F 85 14 122/78 97 03/31/25 03:54 98.5 F 96 18 114/69 92 L 03/31/25 01:04 98.5 F 102 H 19 117/69 94 L 03/30/25 23:26 98.6 F 103 H 18 116/47 100 03/30/25 19:21 99.0 F 104 H 16 134/76 99 03/30/25 17:25 86 18 127/50 98 03/30/25 15:24 98.4 F 70 20 118/61 97 Intake and Output 03/30/25 03/31/25 03/31/25 22:59 06:59 14:59 Other: Voiding Method Toilet # Voids 1 Weight 95.254 kg 95.6 kg General appearance: The patient is alert, oriented, appears in no acute distres s. HET: Head is normocephalic and atraumatic. Conjunctiva pink. Sclera anicteric. Neck: Supple without lymphadenopathy. Trachea midline. Heart: Regular. Lungs: Equal expansion, normal respiratory effort. Abdomen: Soft, right upper quadrant tenderness, nondistended. Skin: No rashes. Jaundice. Extremities: Normal skin color and turgor. No pedal edema. Neurological: No focal deficits. Alert and oriented x3. Results CBC & Chem 7: 03/31/25 07:47 03/31/25 07:47 Labs: Abnormal Lab Results - Last 24 Hours (Table) 03/30/25 03/30/25 03/31/25 Range/Units 15:45 15:45 07:47 RBC 4.09 L (4.10-5.20) 10*6/uL Hgb 11.9 L (12.0-15.0) g/dL Hct 35.0 L (37.2-46.3) % MPV 8.5 L 8.5 L (9.5-12.2) fL Immature Gran # 0.10 H 0.06 H (0.00-0.04) 10*3/uL Neutrophils # 7.95 H (1.80-7.70) 10*3/uL Lymphocytes # 0.85 L (0.90-5.00) 10*3/uL Sodium 135 L (137-145) mmol/L Potassium 3.3 L (3.5-5.1) mmol/L BUN 6 L (7-17) mg/dL Glucose 142 H (74-99) mg/dL Total Bilirubin 4.2 H (0.2-1.3) mg/dL AST 68 H (14-36) U/L ALT 105 H (4-34) U/L Alkaline Phosphatase 422 H (38-126) U/L Comments: CT abdomen pelvis with contrast reports hydropic gallbladder without surrounding inflammatory changes. Extrahepatic biliary duct dilation with the common bile duct measuring up to 11 mm at the pancreatic head. Raises concern for possible choledochal lithiasis. Correlation with biliary labs is recommended. Consider further evaluation with MRCP ERCP Gallbladder ultrasound reports dilated common bile duct redemonstrated 0.9 cm correlate with biliary levels. Consider further evaluation with MRCP/ERCP. Distended gallbladder with sludge. No ultrasound evidence for acute cholecystitis. Body of report states gallbladder demonstrates sludge without shadowing calculi. Assessment and Plan (1) Transaminitis Narrative/Plan: 74-year-old female presenting to the emergency department with abdominal pain mostly along the upper rib cage radiating into her back with elevated LFTs in a cholestatic pattern likely secondary to possible choledochal lithiasis with improvement in symptoms. Patient possibly passed CBD stone. There is noted gallbladder sludge on ultrasound with no evidence of cholelithiasis however CT scan showed biliary dilation within the common bile duct at the pancreatic head. Need to consider biliary obstruction secondary to CBD stone versus other etiologies. Will order CA 19-9, repeat labs. MRCP ordered which is scheduled for tomorrow. Further recommendations forthcoming based on clinical course. Current Visit: Yes Status: Acute Code(s): R74.01 - ELEVATION OF LEVELS OF LIVER TRANSAMINASE LEVELS SNOMED Code(s): 528806095 (2) Abdominal pain Current Visit: Yes Status: Acute Code(s): R10.9 - UNSPECIFIED ABDOMINAL PAIN SNOMED Code(s): 58607569 (3) Hyperbilirubinemia Current Visit: Yes Status: Acute Code(s): E80.6 - OTHER DISORDERS OF BILIRUBIN METABOLISM SNOMED Code(s): 52637290 (4) Acute cholecystitis Current Visit: Yes Status: Acute Code(s): K81.0 - ACUTE CHOLECYSTITIS SNOMED Code(s): 08135294 Plan: 1. Continue symptomatic and supportive care 2. Continue pain medications as needed 3. Protonix 40 mg daily for GI prophylaxis 4. Antiemetics as needed 5. Continue antibiotics as ordered 6. Repeat daily CBC, CMP. CA 19 9 ordered 7. Abdominal ultrasound ordered 8. MRCP ordered, currently pending scheduled for tomorrow 9. Patient may have clear liquid diet, n.p.o. after midnight 10. General surgery following, appreciate their recommendations Thank you for this consultation, we will continue to follow. Dr. Sirena Vuong I agree with the dictator's note, documented as a scribe by Renita Erwin.
--- NOTE | 2025-03-31 15:09 | P.PN ---
Subjective Progress Note Date: 03/31/25 Hospital Course: 74-year-old woman with a medical history of hypothyroidism, depression, obesity class I presented for evaluation of abdominal/flank pain. The pain was of sudden onset today, located in the epigastrium with radiation to the back. She did go to urgent care for this initially but there was concern for acute coronary syndrome and therefore patient was brought into the hospital by EMS for further evaluation. She denies any other symptoms including nausea, vomiting, diarrhea, fevers, chills, palpitations, syncope, diaphoresis, hematuria, dysuria. In the emergency room, patient was afebrile, 118/61, heart rate 70, 97% on room air. CBC was unremarkable. Basic metabolic panel showed hyponatremia to 135, hypokalemia 3.3, otherwise unremarkable. Liver function tests were significant for total bilirubin of 4.2, AST of 68, ALT of 105, alkaline phosphatase of 422. Troponin was less than 0.012. BNP was 76. Urinalysis is unremarkable. EKG showed normal sinus rhythm with first-degree AV block, right axis deviation with right bundle jerrod block, no evidence of ischemia. Chest x-ray is little bit overexposed but appears unremarkable for acute cardiopulmonary process versus mildly increased opacities in the lower lobes given the exposure of the x-ray. Abdomen/pelvis CT demonstrates hydropic gallbladder without surrounding inflammatory changes, extrahepatic biliary duct dilation with the common bile duct measuring up to 11 mm of the pancreatic head. Case was discussed with the emergency room provider and decision was made to move the patient to the hospital for further characterization of her liver function abnormalities and CBD dilation. Subjective: Patient seen and examined at bedside. No acute events overnight. Pertinent positives and negatives as discussed above, a complete review of systems was performed and all other systems are negative. Vitals: Signs Reviewed Physical Exam: General: nontoxic, no distress, appears at stated age Derm: warm, dry, intact Head: atraumatic, normocephalic, symmetric Eyes: EOMI, anicteric sclera Mouth: no lip lesion, mucus membranes moist Cardiovascular: S1 S2 reg, no murmur, rubs, or gallops Lungs: CTA bilateral, no rhonchi, no rales, no accessory muscle use Abdominal: soft, mild epigastric and left flank tenderness on palpation, no right upper quadrant pain Extremities: no gross muscle atrophy, no edema, no contractures Neuro: Alert, Oriented, CNII-XII grossly intact, gait normal Psych: well appearing, appropriate affect Data Received Today: Pertinent Labs: Hgb 11.9, MCV 85.6, potassium 3.2, alk phos 364, AST 74, ALT 98, total bilirubin increased from yesterday 4.2 => 6.2 Imaging: Echocardiogram: Pending Bladder ultrasound displaying dilated common bile duct. Demonstrated distended gallbladder with sludge, no evidence of acute cholecystitis Assessment and Plan: Patient is a 74-year-old woman with a medical history of hypothyroidism, depression, obesity class I presented for evaluation of abdominal/flank pain. #. Cholestatic liver injury #. Common bile duct dilation Gallbladder ultrasound reviewed as above Zosyn 3.375 g IVPB every 8 hours NPO LR at 130 cc an hour Pain management: [place] [id number] q4hrs prn Zofran as needed GI note reviewed, MRCP ordered currently scheduled for tomorrow General Surgery note reviewed, patient scheduled for robotic cholecystectomy tomorrow with Dr. Tejada Cardiology consult stat for cardiac clearance for surgery, pending echocardiogram #. Hypokalemia Potassium chloride 40 mEq once Follow-up BMP Chronic: #. Hypothyroidism: Synthroid 125 mcg p.o. daily #. Depression: Prozac 10 mg p.o. daily #. Insomnia: Amitriptyline 25 mg p.o. at bedtime as needed #. Obesity: Diet and exercise counseling on discharge, outpatient follow-up with weight loss plan DVT ppx: Lovenox 40 SQ daily Code status: Full code Anticipated discharge place: Pending clinical course Anticipated discharge time: Pending clinical course Polly Webster MD PGY-1 IM I have seen and evaluated the patient today. Discussed with the resident and agree with the residents finding and plan as documented in the resident's note. Changes highlighted in blue font. Dictation was produced using [employer] dictation software. please excuse any grammatical, word or spelling errors. Objective - Vital Signs Vital signs: Vital Signs Temp 98.5 F 03/31/25 03:54 Pulse 96 03/31/25 03:54 Resp 18 03/31/25 03:54 BP 114/69 03/31/25 03:54 Pulse Ox 92 L 03/31/25 03:54 FiO2 Intake & Output 03/30/25 03/31/25 03/31/25 18:59 06:59 18:59 Weight 95.254 kg 95.6 kg Other: Voiding Method Toilet # Voids 1 - Labs CBC & Chem 7: 03/31/25 07:47 03/31/25 07:47 Labs: Abnormal Lab Results - Last 24 Hours (Table) 03/30/25 03/30/25 Range/Units 15:45 15:45 MPV 8.5 L (9.5-12.2) fL Immature Gran # 0.10 H (0.00-0.04) 10*3/uL Neutrophils # 7.95 H (1.80-7.70) 10*3/uL Lymphocytes # 0.85 L (0.90-5.00) 10*3/uL Sodium 135 L (137-145) mmol/L Potassium 3.3 L (3.5-5.1) mmol/L BUN 6 L (7-17) mg/dL Glucose 142 H (74-99) mg/dL Total Bilirubin 4.2 H (0.2-1.3) mg/dL AST 68 H (14-36) U/L ALT 105 H (4-34) U/L Alkaline Phosphatase 422 H (38-126) U/L
[2025-03-31] MEDS: HYDROcodone/APAP 5-325MG 1 EACH TAB PO PRN (16:26)
--- NOTE | 2025-03-31 16:59 | CA ---
Transthoracic Echo Report Name: Johanne Blake Age: 74 Gender: F : 1950 Exam Date: 03/31/2025 10:00 Exam Location: [facility] Ht (in): 65 Wt (lb): 210 Ordering Physician: Serena Tejada MD Attending/Referring Phys: Mallory LAMA Industrial Automation Engineer Sharonda Gardner RDCS Procedure CPT: Indications: abnormal EKG/chest pain Cardiac Hx: Technical Quality: Fair Contrast 1: Total Dose (mL): Contrast 2: Total Dose (mL): MEASUREMENTS (Male / Female) Normal Values 2D ECHO LV Diastolic Diameter PLAX 3.4 cm 4.2 - 5.9 / 3.9 - 5.3 cm LV Systolic Diameter PLAX 2.4 cm IVS Diastolic Thickness 0.9 cm 0.6 - 1.0 / 0.6 - 0.9 cm LVPW Diastolic Thickness 0.9 cm 0.6 - 1.0 / 0.6 - 0.9 cm LV Relative Wall Thickness 0.5 LVOT Diameter 2.4 cm LV Diastolic Volume MOD BP 86.2 cm??? 67 - 155 / 56 - 104 cm??? LV Systolic Volume MOD BP 38.8 cm??? 22 - 58 / 19 - 49 cm??? LV Ejection Fraction MOD BP 55.0 % >= 55 % LV Cardiac Index MOD BP 1827.0 cm???/min???m??? LV Diastolic Volume MOD 4C 90.7 cm??? LV Systolic Volume MOD 4C 40.6 cm??? LV Ejection Fraction MOD 4C 55.3 % LV Cardiac Index MOD 4C 1931.0 cm???/min???m??? LV Diastolic Length 4C 8.4 cm LV Systolic Length 4C 6.9 cm LV Diastolic Volume MOD 2C 71.7 cm??? LV Systolic Volume MOD 2C 30.9 cm??? LV Ejection Fraction MOD 2C 56.9 % LV Cardiac Index MOD 2C 1570.6 cm???/min???m??? LV Diastolic Length 2C 7.3 cm LV Systolic Length 2C 5.8 cm LA Volume 46.5 cm??? 18 - 58 / 22 - 52 cm??? LA Volume Index 21.8 cm???/m??? 16 - 28 cm???/m??? DOPPLER AV Peak Velocity 138.4 cm/s AV Peak Gradient 7.7 mmHg AV Mean Velocity 98.6 cm/s AV Mean Gradient 4.3 mmHg AV Velocity Time Integral 28.7 cm LVOT Peak Velocity 115.1 cm/s LVOT Peak Gradient 5.3 mmHg LVOT Velocity Time Integral 24.4 cm LVOT Stroke Volume 108.9 cm??? LVOT Stroke Volume Index 53.9 ml/m??? LVOT Cardiac Index 4192.1 cm???/min???m??? AV Area Cont Eq vti 3.8 cm??? AV Area Cont Eq pk 3.7 cm??? MV Area PHT 8.6 cm??? Mitral E Point Velocity 76.2 cm/s Mitral A Point Velocity 88.2 cm/s Mitral E to A Ratio 0.9 MV Deceleration Time 88.2 ms TR Peak Velocity 249.8 cm/s TR Peak Gradient 25.0 mmHg Right Atrial Pressure 5.0 mmHg Pulmonary Artery Systolic Pressu 30.0 mmHg Right Ventricular Systolic Press 30.0 mmHg PV Peak Velocity 101.6 cm/s PV Peak Gradient 4.1 mmHg FINDINGS Left Ventricle Left ventricular ejection fraction is estimated at 55-60 %. Left ventricular cavity size normal. Left ventricular wall thickness normal. No obvious regional wall motion abnormalities. Right Ventricle Normal right ventricular size and function. Right ventricular systolic pressure within normal limits. Right Atrium Normal right atrial size. Left Atrium Normal left atrial size. Mitral Valve Structurally normal mitral valve. No evidence for mitral valve prolapse. No mitral stenosis. Trace mitral regurgitation. Aortic Valve Trileaflet aortic valve. No aortic stenosis. Trace to mild aortic regurgitation. Tricuspid Valve Structurally normal tricuspid valve. No tricuspid stenosis. Mild tricuspid regurgitation. Pulmonic Valve Pulmonic valve not well visualized. No pulmonic stenosis. Trace pulmonic regurgitation. Pericardium No pericardial effusion. Aorta Aortic annulus normal. CONCLUSIONS Normal LV size and systolic function. Mild mitral and tricuspid regurgitation. No pericardial effusion. No pulmonary hypertension Previewed by: Dr. Brianna Weldon MD (Electronically Signed) Final Date: 31 Mar 2025 16:58
[2025-04-01 04:40] LABS: HCT 37.6 % (37.2-46.3); HGB 12.6 g/dL (12.0-15.0); MCH 29.2 pg (27.0-32.0); MCHC 33.5 g/dL (32.0-37.0); Mean Platelet Volume 8.4 fL (9.5-12.2); Platelet Count 349 10*3/uL (140-440); RBC 4.32 10*6/uL (4.10-5.20); RDW 14.4 % (11.5-14.5); WBC 7.18 10*3/uL (4.50-10.00)
[2025-04-01 05:02] LABS: ALT 99 U/L (4-34); AST 72 U/L (14-36); African American GFR (CKD) >90 (>60 ml/min/1.73 sqM); Albumin 3.4 g/dL (3.5-5.0); Alkaline Phosphatase 404 U/L (38-126); Anion Gap 12 mmol/L; Blood Urea Nitrogen 5 mg/dL (7-17); Calcium 8.8 mg/dL (8.4-10.2); Carbon Dioxide 21 mmol/L (22-30); Chloride 106 mmol/L (98-107); Glucose 67 mg/dL (74-99); Non-African American GFR(CKD) >90 (>60 ml/min/1.73 sqM); Potassium 3.3 mmol/L (3.5-5.1); Sodium 139 mmol/L (137-145); Total Bilirubin 7.1 mg/dL (0.2-1.3); Total Protein 6.2 g/dL (6.3-8.2)
[2025-04-01] MEDS ORDERED: POTASSIUM CHLORIDE ER 20 MEQ TAB.ER PO STA (07:02)
--- NOTE | 2025-04-01 10:14 | P.PN ---
Subjective Progress Note Date: 04/01/25 CHIEF COMPLAINT: Cholecystitis HISTORY OF PRESENT ILLNESS: Patient mid to the hospital with cholecystitis and suspected choledocholithiasis. Patient scheduled for MRCP today. Patient continues to have pain across the upper abdomen radiating to the back. She denies any nausea or vomiting. Patient scheduled for MRCP today for evaluation of choledocholithiasis. Also possible ERCP with GI service today depending on MRCP results. Afebrile. WBC 7.18 Hgb 12.6 platelets 349 potassium is 3.3 total bilirubin is up from 6.2-7.1 AST 72 ALT 99 alk phos 404 CA 19-9 121 PHYSICAL EXAM: VITAL SIGNS: Reviewed GENERAL: Well-developed in no acute distress. HEENT: No sclera icterus. Extraocular movements grossly intact. Moist buccal mucosa. Head is atraumatic, normocephalic. Hears conversational speech. No nasal drainage. NECK: Supple without lymphadenopathy. CHEST: Non-labored respirations and equal bilateral excursions. CARDIOVASCULAR: Palpable 2+ radial pulses. ABDOMEN: Soft. Nondistended. Tenderness to palpation across upper abdomen MUSCULOSKELETAL: No clubbing or cyanosis. NEUROLOGIC: No focal or lateralizing signs. Cranial nerves II through XII grossly intact. PSYCH: Appropriate affect. Alert and oriented to person, place and time. SKIN: Well perfused. Good skin turgor. ASSESSMENT: 1. Acute cholecystitis. Hydropic gallbladder with surrounding inflammatory changes noted on CT scan. Ultrasound with distended gallbladder and sludge and dilated common bile duct. 2. Suspected choledocholithiasis. Elevated total bilirubin and LFTs and dilated common bile duct noted on imaging 3. Elevated CA 19-9 level 4. Hypokalemia PLAN: - Patient scheduled for MRCP today and depending on those results possible ERCP with GI service - Further recommendations forthcoming per surgeon regarding Robotic cholecystectomy - Keep patient n.p.o. - Continue IV fluid with - Continue supportive care - Medicine service replacing potassium - Cardiology service for cardiac risk assessment Physician [employer] note has been reviewed by physician. Signing provider agrees with the documented findings, assessment, and plan of care. Please see additional documentation below per MD CHIEF COMPLAINT: Jaundice with abdominal pain HISTORY OF PRESENT ILLNESS: The patient is a 74-year-old female admitted with jaundice including epigastric and right upper quadrant abdominal pain. She completed MRCP. Patient confirms having pre-existing abdominal pain change in color of her urine for at least 3 to 5 days prior to admission. ROS: No reports of nausea and vomiting. No fevers or chills. No new chest pain. No productive sputum PHYSICAL EXAM: VITAL SIGNS: Reviewed CONSTITUTIONAL: Well developed and in no acute distress. EYES: Jaundice. Extraocular movements grossly intact. HEAD, EARS, NOSE, THROAT: Moist buccal mucosa. Head is atraumatic, normocephalic. Hears conversational speech. No nasal drainage. RESPIRATORY: Non-labored respirations and equal bilateral excursions. CARDIOVASCULAR: Palpable 2+ radial pulses. ABDOMEN: Nontender. MUSCULOSKELETAL: No gross deformity of the lower extremities noted. No clubbing. No cyanosis. SKIN: Good skin turgor. Well perfused. NEUROLOGIC: Cranial nerves II through XII grossly intact. No focal or lateralizing signs. PSYCH: Appropriate affect. Alert and oriented to person, place and time. CLINICAL LABS: Reviewed. Total bilirubin elevated from 6.2-7.1. AST ALT liver enzymes persistently elevated. CA 19-9 elevated. Potassium 3.3, hypokalemia. WBC normal. Hemoglobin up 11.9-12.6. STUDIES: MRCP independent review demonstrates a large stone along the distal, bile duct. This is my independent interpretation. REPORTS: Echocardiogram report demonstrates normal left ventricular function and systolic function without aortic stenosis. ASSESSMENT: 1. Choledocholithiasis with cholecystitis 2. Morbid obesity excess calories, BMI 35.1 3. Hypokalemia 4. Jaundice 5. Elevated CA 19-9 PLAN: 1. Discussed with GI attending regarding MRCP with ERCP and presence of choledocholithiasis 2. Do recommend continued hospitalization following ERCP due to moderately elevated liver enzymes and bilirubin levels 3. Will need correction of potassium 4. Recommend inpatient cholecystectomy after liver enzymes normalized and after ERCP 5. All questions addressed with patient including coordination of care Dictation was produced using [employer] dictation software. Please excuse any grammatical, word or spelling errors. Objective - Vital Signs Vital signs: Vital Signs Temp 98.3 F 04/01/25 08:30 Pulse 84 04/01/25 08:30 Resp 14 04/01/25 08:30 BP 142/83 04/01/25 08:30 Pulse Ox 98 04/01/25 08:30 FiO2 Intake & Output 03/31/25 04/01/25 04/01/25 18:59 06:59 18:59 Weight 95.6 kg Other: Voiding Method Toilet Toilet # Voids 1 2 - Labs CBC & Chem 7: 04/01/25 04:12 04/01/25 04:12 Labs: Abnormal Lab Results - Last 24 Hours (Table) 03/31/25 04/01/25 04/01/25 Range/Units 07:47 04:12 04:12 MPV 8.4 L (9.5-12.2) fL Potassium 3.3 L (3.5-5.1) mmol/L Carbon Dioxide 21 L (22-30) mmol/L BUN 5 L (7-17) mg/dL Creatinine 0.50 L (0.52-1.04) mg/dL Glucose 67 L (74-99) mg/dL Total Bilirubin 7.1 H (0.2-1.3) mg/dL AST 72 H (14-36) U/L ALT 99 H (4-34) U/L Alkaline Phosphatase 404 H (38-126) U/L Total Protein 6.2 L (6.3-8.2) g/dL Albumin 3.4 L (3.5-5.0) g/dL CA 19-9 Antigen 121.0 H (0.0-34.9) U/mL
[2025-04-01 10:41] LABS: Glucose,Whole Blood 64 mg/dL (70-110)
[2025-04-01] MEDS: DEXTROSE 50% SYRINGE 50 ML IVP STA (10:45)
--- NOTE | 2025-04-01 10:50 | MR ---
EXAMINATION TYPE: MR MRCP DATE OF EXAM: 04/01/2025 10:32 AM COMPARISON: CT abdomen and pelvis 2 days earlier CLINICAL INDICATION: Female, 74 years old with history of MRCP, Epigastric pain, burning sensation, e valuate for CBD stone/obstruction. IV Contrast: cc (None if empty) Standard multiplanar, multisequence MRI departmental protocol Multiplanar, multisequence images of the abdomen were acquired without contrast. Diffusion weighted i maging was performed. Thin and thick slice MRCP imaging performed on independent workstation. FINDINGS: Liver/gallbladder/pancreas/biliary system: Liver is normal in size. There is a simple 10 mm thin-wall ed cyst in the hepatic dome redemonstrated. Gallbladder redemonstrated with distended margins and dil atation. No internal gallstones. And mild extrahepatic biliary dilatation up to 9 mm image 68 series 701. There is nonobstructing 5 mm distal CBD stone image 72 series 701. [id number] generalized atrophy of the pancreas redemonstrated. No ductal dilatation is seen. Other: Lung bases are clear. There is 1.8 cm simple thin-walled cyst in the anterior spleen redemonst rated. Adrenal glands are unremarkable. No renal masses or hydronephrosis bilaterally. No abnormal jeffrey wel dilatation. Few colonic diverticula. No AAA. Degenerative change in the lumbar spine is redemonst rated. IMPRESSION: There is a 5 mm CBD stone identified. [facility], , 04/01/2025 10:47 AM
--- NOTE | 2025-04-01 11:09 | P.PN ---
Subjective Progress Note Date: 04/01/25 Principal diagnosis: Choledocholithiasis Patient is seen and examined today as a follow-up. She is scheduled for MRCP which does show a 5 mm CBD stone. States abdominal pain is better than when she came in but still has a slight ache mostly in her back. No nausea or vomiting. LFTs continue to trend upwards. She has been afebrile. She remains on IV antibiotics. Today's labs WBC 7.1 hemoglobin 12.6 platelet count 349,000 sodium 139 potassium 3.3 total bilirubin 7.1 AST 72 ALT 99 alkaline phosphatase 404 CA 19-9 antigen 121 Objective - Vital Signs Vital signs: Vital Signs Temp 98.3 F 04/01/25 08:30 Pulse 84 04/01/25 08:30 Resp 14 04/01/25 08:30 BP 142/83 04/01/25 08:30 Pulse Ox 98 04/01/25 08:30 FiO2 Intake & Output 03/31/25 04/01/25 04/01/25 18:59 06:59 18:59 Weight 95.6 kg Other: Voiding Method Toilet Toilet # Voids 1 2 - Exam General appearance: The patient is alert, oriented, appears in no acute di stress. HET: Head is normocephalic and atraumatic. Conjunctiva pink. Sclera anicteric. Neck: Supple without lymphadenopathy. Abdomen: Soft, right upper quadrant tenderness, nondistended. Extremities: Normal skin color and turgor. No pedal edema Skin: No rashes, no jaundice Neurological: No focal deficits. Alert and oriented. - Labs CBC & Chem 7: 04/01/25 04:12 04/01/25 04:12 Labs: Abnormal Lab Results - Last 24 Hours (Table) 03/31/25 04/01/25 04/01/25 Range/Units 07:47 04:12 04:12 MPV 8.4 L (9.5-12.2) fL Potassium 3.3 L (3.5-5.1) mmol/L Carbon Dioxide 21 L (22-30) mmol/L BUN 5 L (7-17) mg/dL Creatinine 0.50 L (0.52-1.04) mg/dL Glucose 67 L (74-99) mg/dL POC Glucose (mg/dL) (70-110) mg/dL Total Bilirubin 7.1 H (0.2-1.3) mg/dL AST 72 H (14-36) U/L ALT 99 H (4-34) U/L Alkaline Phosphatase 404 H (38-126) U/L Total Protein 6.2 L (6.3-8.2) g/dL Albumin 3.4 L (3.5-5.0) g/dL CA 19-9 Antigen 121.0 H (0.0-34.9) U/mL 04/01/25 Range/Units 10:40 MPV (9.5-12.2) fL Potassium (3.5-5.1) mmol/L Carbon Dioxide (22-30) mmol/L BUN (7-17) mg/dL Creatinine (0.52-1.04) mg/dL Glucose (74-99) mg/dL POC Glucose (mg/dL) 64 L (70-110) mg/dL Total Bilirubin (0.2-1.3) mg/dL AST (14-36) U/L ALT (4-34) U/L Alkaline Phosphatase (38-126) U/L Total Protein (6.3-8.2) g/dL Albumin (3.5-5.0) g/dL CA 19-9 Antigen (0.0-34.9) U/mL Assessment and Plan (1) Transaminitis Narrative/Plan: 74-year-old female presenting to the emergency department with abdominal pain mostly along the upper rib cage radiating into her back with elevated LFTs in a cholestatic pattern likely secondary to possible choledochal lithiasis with improvement in symptoms. Patient possibly passed CBD stone. There is noted gallbladder sludge on ultrasound with no evidence of cholelithiasis however CT scan showed biliary dilation within the common bile duct at the pancreatic head. Need to consider biliary obstruction secondary to CBD stone versus other etiologies. Transaminitis secondary to choledocholithiasis. MRCP does show a 5 mm CBD stone. Plan for ERCP. Continue IV antibiotics. Current Visit: Yes Status: Acute Code(s): R74.01 - ELEVATION OF LEVELS OF LIVER TRANSAMINASE LEVELS SNOMED Code(s): 628441809 (2) Choledocholithiasis Current Visit: Yes Status: Acute Code(s): K80.50 - CALCULUS OF BILE DUCT W/O CHOLANGITIS OR CHOLECYST W/O OBST SNOMED Code(s): 120193335 (3) Abdominal pain Current Visit: Yes Status: Acute Code(s): R10.9 - UNSPECIFIED ABDOMINAL PAIN SNOMED Code(s): 05024862 (4) Hyperbilirubinemia Current Visit: Yes Status: Acute Code(s): E80.6 - OTHER DISORDERS OF BILIRUBIN METABOLISM SNOMED Code(s): 14788829 (5) Acute cholecystitis Current Visit: Yes Status: Acute Code(s): K81.0 - ACUTE CHOLECYSTITIS SN OMED Code(s): 74935605 Plan: 1. Continue symptomatic and supportive care 2. Hold Lovenox 3. Keep n.p.o. 4. MRCP was ordered and reviewed 5. Continue antibiotics as ordered 6. Give indomethacin as ordered 1 hour prior to ERCP 7. Plan for ERCP this afternoon 8. Continue with recommendations from general surgery, tentative plan for cholecystectomy on Friday Thank you for this consultation further recommendations forthcoming pending ERCP. Thank you for allowing us to participate in the care of the patient, the GI service will sign off, gastroenterology will not be available at the hospital this weekend and through next week. If further evaluation by gastroenterology is required the patient will need transfer as per the primary team's discretion. Dr. Sirena Vuong I agree with the dictator's note, documented as a scribe by Renita CORREA.
[2025-04-01 11:28] LABS: Glucose,Whole Blood 104 mg/dL (70-110)
[2025-04-01] MEDS: POTASSIUM CHLORIDE 20 MEQ in WATER FOR INJECTION 1 100ML.BAG IVPB SCH (12:28)
--- NOTE | 2025-04-01 12:42 | P.GSCN ---
History of Present Illness Consult date: 03/31/25 History of present illness: CHIEF COMPLAINT: Abdominal pain HISTORY OF PRESENT ILLNESS: This is a 74-year-old female who presented with pain across the rib cage and into the back. Patient reports she has not been feeling well for about a week. Initially she thought she had the flu. She reports that her skin was itchy she has been having dark urine and then yesterday she started having severe pain across the rib cage epigastric area and into the back. She was nauseous. She reports decreased appetite. She was having sweats. She came into the ER for further evaluation. CT scan had reported a hydropic gallbladder with surrounding inflammatory changes. Extrahepatic biliary duct dilatation with common bile duct measuring 11 mm at the pancreatic head raises concerns for possible choledocholithiasis. Patient was found to have elevated total bilirubin and LFTs. She is being evaluated by GI service. PAST MEDICAL HISTORY: See list. PAST SURGICAL HISTORY: See list. MEDICATIONS: See list. ALLERGIES: See list. SOCIAL HISTORY: No illicit drug use. REVIEW OF SYSTEMS: CONSTITUTIONAL: Denies fever or chills. HEENT: Denies blurred vision, vision changes, or eye pain. Denies hemoptysis ENDOCRINE: Denies heat or cold intolerance. CARDIOVASCULAR: Denies chest pain or pressure. RESPIRATORY: No shortness of breath. GASTROINTESTINAL: Please refer to HPI otherwise unremarkable. NEURO: Denies history of seizures. PSYCH: No depression or suicidal ideation HEMATOLOGIC: Denies bleeding disorders. LYMPHATIC: The patient denies any lumps and bumps around the neck. GENITOURINARY: Denies any blood in urine or increased urinary frequency. MUSCULOSKELETAL: Denies myalgias. Denies joint swelling. Denies decreased range of motion beyond patients baseline. SKIN: Denies pruitis. Denies rash. PHYSICAL EXAM: VITAL SIGNS: Reviewed GENERAL: Well-developed in no acute distress. HEENT: Scleral icterus present. Extraocular movements grossly intact. Moist buccal mucosa. Head is atraumatic, normocephalic. Hears conversational speech. No nasal dr ainage. NECK: Supple without lymphadenopathy. CHEST: Non-labored respirations and equal bilateral excursions. CARDIOVASCULAR: Palpable 2+ radial pulses. ABDOMEN: Soft. Nondistended. Tenderness right upper quadrant with palpation MUSCULOSKELETAL: No clubbing or cyanosis. NEUROLOGIC: No focal or lateralizing signs. Cranial nerves II through XII grossly intact. PSYCH: Appropriate affect. Alert and oriented to person, place and time. SKIN: Jaundice LABORATORY DATA: WBC 8.89 Hgb 11.9 platelets 327 Sodium 140 potassium is 3.2 creatinine 0.60 Total bilirubin 4.2 up to 6.2 AST 74 ALT 98 alk phos 364 IMAGING: CT scan abdomen pelvis reports hydropic gallbladder with surrounding inflammat ory changes. Extrahepatic biliary duct dilatation with common bile duct measuring up to 11 mm at the pancreatic head. Raises concern for possible choledocholithiasis. Gallbladder ultrasound reports a dilated common bile duct redemonstrated. Correlation with biliary levels is recommended. Distended gallbladder with sludge. No ultrasound evidence for acute cholecystitis. ASSESSMENT: 1. Acute cholecystitis. Hydropic gallbladder with surrounding inflammatory changes noted on CT scan. 2. Suspected choledocholithiasis. Elevated total bilirubin and LFTs and dilated common bile duct noted on imaging PLAN: - Await further GI recommendations - Patient scheduled for Robotic cholecystectomy tomorrow, 04/01/[address] Tejada - Continue antibiotics - Consult cardiology for cardiac risk assessment - 2D echo ordered - Continue IV fluids - Keep patient n.p.o. for now Physician Legal Referee note has been reviewed by physician. Signing provider agrees with the documented findings, assessment, and plan of care. Past Medical History Past Medical History: GERD/Reflux Additional Past Medical History / Comment(s): RBB History of Any Multi-Drug Resistant Organisms: None Reported Past Surgical History: Hysterectomy, Joint Replacement, Orthopedic Surgery Past Anesthesia/Blood Transfusion Reactions: No Reported Reaction Past Psychological History: No Psychological Hx Reported Smoking Status: Never smoker Past Alcohol Use History: None Reported Past Drug Use History: None Reported Medications and Allergies Home Medications Medication Instructions Recorded Confirmed Type Levothyroxine Sodium 125 mcg PO DAILY 06/18/23 03/30/25 History Amitriptyline HCl [Elavil] 25 mg PO HS PRN 03/30/25 03/30/25 History FLUoxetine HCL [PROzac] 10 mg PO DAILY 03/30/25 03/30/25 History Allergies Allergy/AdvReac Type Severity Reaction Status Date / Time No Known Allergies Allergy Verified 03/30/25 16:28 Surgical - Exam Vital Signs Temp Pulse Resp BP Pulse Ox 98.4 F 70 20 118/61 97 03/30/25 15:24 03/30/25 15:24 03/30/25 15:24 03/30/25 15:24 03/30/25 15:24 Results - Labs 04/01/25 04:12 04/01/25 04:12 Abnormal Lab Results - Last 24 Hours (Table) 03/31/25 04/01/25 04/01/25 Range/Units 07:47 04:12 04:12 MPV 8.4 L (9.5-12.2) fL Potassium 3.3 L (3.5-5.1) mmol/L Carbon Dioxide 21 L (22-30) mmol/L BUN 5 L (7-17) mg/dL Creatinine 0.50 L (0.52-1.04) mg/dL Glucose 67 L (74-99) mg/dL POC Glucose (mg/dL) (70-110) mg/dL Total Bilirubin 7.1 H (0.2-1.3) mg/dL AST 72 H (14-36) U/L ALT 99 H (4-34) U/L Alkaline Phosphatase 404 H (38-126) U/L Total Protein 6.2 L (6.3-8.2) g/dL Albumin 3.4 L (3.5-5.0) g/dL CA 19-9 Antigen 121.0 H (0.0-34.9) U/mL 04/01/25 Range/Units 10:40 MPV (9.5-12.2) fL Potassium (3.5-5.1) mmol/L Carbon Dioxide (22-30) mmol/L BUN (7-17) mg/dL Creatinine (0.52-1.04) mg/dL Glucose (74-99) mg/dL POC Glucose (mg/dL) 64 L (70-110) mg/dL Total Bilirubin (0.2-1.3) mg/dL AST (14-36) U/L ALT (4-34) U/L Alkaline Phosphatase (38-126) U/L Total Protein (6.3-8.2) g/dL Albumin (3.5-5.0) g/dL CA 19-9 Antigen (0.0-34.9) U/mL Diabetes panel 04/01/25 Range/Units 04:12 Sodium 139 (137-145) mmol/L Potassium 3.3 L (3.5-5.1) mmol/L Chloride 106 (98-107) mmol/L Carbon Dioxide 21 L (22-30) mmol/L BUN 5 L (7-17) mg/dL Creatinine 0.50 L (0.52-1.04) mg/dL Glucose 67 L (74-99) mg/dL Calcium 8.8 (8.4-10.2) mg/dL AST 72 H (14-36) U/L ALT 99 H (4-34) U/L Alkaline Phosphatase 404 H (38-126) U/L Total Protein 6.2 L (6.3-8.2) g/dL Albumin 3.4 L (3.5-5.0) g/dL Calcium panel 04/01/25 Range/Units 04:12 Calcium 8.8 (8.4-10.2) mg/dL Albumin 3.4 L (3.5-5.0) g/dL Pituitary panel 04/01/25 Range/Units 04:12 Sodium 139 (137-145) mmol/L Potassium 3.3 L (3.5-5.1) mmol/L Chloride 106 (98-107) mmol/L Carbon Dioxide 21 L (22-30) mmol/L BUN 5 L (7-17) mg/dL Creatinine 0.50 L (0.52-1.04) mg/dL Glucose 67 L (74-99) mg/dL Calcium 8.8 (8.4-10.2) mg/dL Adrenal panel 04/01/25 Range/Units 04:12 Sodium 139 (137-145) mmol/L Potassium 3.3 L (3.5-5.1) mmol/L Chloride 106 (98-107) mmol/L Carbon Dioxide 21 L (22-30) mmol/L BUN 5 L (7-17) mg/dL Creatinine 0.50 L (0.52-1.04) mg/dL Glucose 67 L (74-99) mg/dL Calcium 8.8 (8.4-10.2) mg/dL Total Bilirubin 7.1 H (0.2-1.3) mg/dL AST 72 H (14-36) U/L ALT 99 H (4-34) U/L Alkaline Phosphatase 404 H (38-126) U/L Total Protein 6.2 L (6.3-8.2) g/dL Albumin 3.4 L (3.5-5.0) g/dL
--- NOTE | 2025-04-01 13:14 | P.PN ---
Subjective Progress Note Date: 04/01/25 Reason for Consult (text): Cardiac risk assessment, abnormal EKG History of present illness: This is 74-year-old female follows with a collision technician in [place] with past medical history of right bundle branch block, hypothyroidism. We have been asked to evaluate the patient for cardiac risk assessment and abnormal EKG. Patient states that she came into the hospital due to lower chest pain and epigastric pain radiating to her back. She was apparently at the urgent care and was sent into the hospital to rule out acute coronary syndrome. Blood p ressure 122/78, heart rate 85, pulse ox 97% on room air. -EKG: Sinus rhythm with right bundle branch block. -Chest x-ray: No acute process. -CT abdomen and pelvis: Hydropic gallbladder without surrounding inflammatory changes. Extrahepatic biliary duct dilatation and common bile duct measuring 11 mm at the pancreatic head. Concern for choledocholithiasis. -Laboratory studies: WBC 8.8, hemoglobin 11.9, total bilirubin 6.2, AST 74, ALT 98, alkaline phosphatase 364. Troponin negative x 1. proBNP 76. Urinalysis negative. -Home cardiac medications: None - Lexiscan Cardiolite stress test performed 08/05/2022 at [facility] was negative for ischemia. 04/01 Patient seen and examined. Echocardiogram reveals normal LV size and systolic function. Mild mitral and tricuspid regurgitation. No pericardial effusion. No pulmonary hypertension. Blood pressure 129/80, heart rate in the 80s, pulse ox 97% on room air. Repeat blood work reveals potassium 3.3, BUN 5 creatinine 0.5. Physical examination: Gen: This is 74-year-old female in no acute distress VS: reviewed HEENT: Head is atraumatic, normocephalic. Pupils equal, round. Sclerae is anicteric. NECK: Supple. No JVD. LUNGS: Clear to auscultation. No wheezes or rhonchi. No intercostal retractions. HEART: Regular rate and rhythm. No murmur. ABDOMEN: Soft No tenderness. EXTREMITIES: No pedal edema. No calf tenderness. NEUROLOGICAL: Patient is awake, alert and oriented x3. Assessment: Known right bundle branch block Choledocholithiasis Hypothyroidism Plan: No further cardiac workup at this time. Patient is cleared for planned surgeries whether ERCP, cholecystectomy. Patient is at average risk for complications. No absolute contraindications. Cardiology will sign off this case and follow on an as-needed basis. Please reconsult for any new concerns. Patient may follow-up with her own collision technician in 2 weeks. Nurse practitioner note has been reviewed, I agree with documented findings and plan of care. Patient was seen and examined. Objective - Vital Signs Vital signs: Vital Signs Temp 98.3 F 04/01/25 08:30 Pulse 84 04/01/25 08:30 Resp 14 04/01/25 08:30 BP 142/83 04/01/25 08:30 Pulse Ox 98 04/01/25 08:30 FiO2 Intake & Output 03/31/25 04/01/25 04/01/25 18:59 06:59 18:59 Weight 95.6 kg Other: Voiding Method Toilet Toilet # Voids 1 2 - Labs CBC & Chem 7: 04/01/25 04:12 04/01/25 04:12 Labs: Abnormal Lab Results - Last 24 Hours (Table) 03/31/25 03/31/25 04/01/25 Range/Units 07:47 07:47 04:12 MPV 8.4 L (9.5-12.2) fL Potassium 3.2 L (3.5-5.1) mmol/L Carbon Dioxide (22-30) mmol/L BUN 6 L (7-17) mg/dL Creatinine (0.52-1.04) mg/dL Glucose (74-99) mg/dL Total Bilirubin 6.2 H (0.2-1.3) mg/dL AST 74 H (14-36) U/L ALT 98 H (4-34) U/L Alkaline Phosphatase 364 H (38-126) U/L Total Protein 5.8 L (6.3-8.2) g/dL Albumin 3.1 L (3.5-5.0) g/dL CA 19-9 Antigen 121.0 H (0.0-34.9) U/mL 04/01/25 Range/Units 04:12 MPV (9.5-12.2) fL Potassium 3.3 L (3.5-5.1) mmol/L Carbon Dioxide 21 L (22-30) mmol/L BUN 5 L (7-17) mg/dL Creatinine 0.50 L (0.52-1.04) mg/dL Glucose 67 L (74-99) mg/dL Total Bilirubin 7.1 H (0.2-1.3) mg/dL AST 72 H (14-36) U/L ALT 99 H (4-34) U/L Alkaline Phosphatase 404 H (38-126) U/L Total Protein 6.2 L (6.3-8.2) g/dL Albumin 3.4 L (3.5-5.0) g/dL CA 19-9 Antigen (0.0-34.9) U/mL
--- NOTE | 2025-04-01 13:25 | P.PN ---
Subjective Progress Note Date: 04/01/25 Hospital Course: 74-year-old woman with a medical history of hypothyroidism, depression, obesity class I presented for evaluation of abdominal/flank pain. The pain was of sudden onset today, located in the epigastrium with radiation to the back. She did go to urgent care for this initially but there was concern for acute coronary syndrome and therefore patient was brought into the hospital by EMS for further evaluation. She denies any other symptoms including nausea, vomiting, diarrhea, fevers, chills, palpitations, syncope, diaphoresis, hematuria, dysuria. In the emergency room, patient was afebrile, 118/61, heart rate 70, 97% on room air. CBC was unremarkable. Basic metabolic panel showed hyponatremia to 135, hypokalemia 3.3, otherwise unremarkable. Liver function tests were significant for total bilirubin of 4.2, AST of 68, ALT of 105, alkaline phosphatase of 422. Troponin was less than 0.012. BNP was 76. Urinalysis is unremarkable. EKG showed normal sinus rhythm with first-degree AV block, right axis deviation with right bundle jerrod block, no evidence of ischemia. Chest x-ray is little bit overexposed but appears unremarkable for acute cardiopulmonary process versus mildly increased opacities in the lower lobes given the exposure of the x-ray. Abdomen/pelvis CT demonstrates hydropic gallbladder without surrounding inflammatory changes, extrahepatic biliary duct dilation with the common bile duct measuring up to 11 mm of the pancreatic head. Case was discussed with the emergency room provider and decision was made to move the patient to the hospital for further characterization of her liver function abnormalities and CBD dilation. Gallbladder ultrasound displaying dilated common bile duct. Demonstrated distended gallbladder with sludge, no evidence of acute cholecystitis Echocardiogram: EF 55-60%, normal LV size and systolic function, mild mitral and tricuspid regurgitation, no pericardial effusion, no pulmonary hypertension Subjective: Patient seen and examined at bedside. No acute events overnight. Still has complaint of abdominal pain in epigastric region radiating to the back. Pertinent positives and negatives as discussed above, a complete review of systems was performed and all other systems are negative. Vitals: Signs Reviewed Physical Exam: General: nontoxic, no distress, appears at stated age Derm: warm, dry, intact Head: atraumatic, normocephalic, symmetric Eyes: EOMI, anicteric sclera Mouth: no lip lesion, mucus membranes moist Cardiovascular: S1 S2 reg, no murmur, rubs, or gallops Lungs: CTA bilateral, no rhonchi, no rales, no accessory muscle use Abdominal: soft, mild epigastric and left flank tenderness on palpation, no right upper quadrant pain Extremities: no gross muscle atrophy, no edema, no contractures Neuro: Alert, Oriented, CNII-XII grossly intact, gait normal Psych: well appearing, appropriate affect Data Received Today: Pertinent Labs: CBC unremarkable, patient remains hypokalemic with potassium 3.3, cholestatic liver injury being stable at alk phos of 404, AST 72, ALT 99, total bilirubin increased 7.1, CA 19-9 antigen elevated at 121 Imaging: MRCP showing 5 mm CBD stone Assessment and Plan: Patient is a 74-year-old woman with a medical history of hypothyroidism, depression, obesity class I presented for evaluation of abdominal/flank pain. #. #. Common bile duct dilation secondary to choledocholithiasis Gallbladder ultrasound reviewed as above Zosyn 3.375 g IVPB every 8 hours NPO LR at 130 cc an hour Pain management: [place] [id number] q4hrs prn Zofran as needed GI note reviewed, MRCP displayed 5 mm CBD stone, plan for ERCP General Surgery note reviewed, surgery to be pushed back 1-2 days following ERCP Cardiology cleared patient for surgery, echocardiogram reviewed as above #. Hypokalemia Potassium chloride 40 mEq once Follow-up BMP Chronic: #. Hypothyroidism: Synthroid 125 mcg PO QD #. Depression: Prozac 10 mg PO QD #. Insomnia: Amitriptyline 25 mg PO HS prn #. Obesity: Diet and exercise counseling on discharge, outpatient follow-up with weight loss plan DVT ppx: Lovenox 40 SQ daily Code status: Full code Anticipated discharge place: Pending clinical course Anticipated discharge time: Pending clinical course Polly Webster MD PGY-1 IM Dictation was produced using [employer] dictation software. please excuse any grammatical, word or spelling errors. I have seen and evaluated the patient today. Discussed with the resident and agree with the residents finding and plan as documented in the resident's note. Changes highlighted in blue font. Objective - Vital Signs Vital signs: Vital Signs Temp 97.7 F 03/31/25 19:52 Pulse 89 04/01/25 04:27 Resp 18 04/01/25 04:27 BP 149/82 04/01/25 04:27 Pulse Ox 97 04/01/25 04:27 FiO2 Intake & Output 03/31/25 03/31/25 04/01/25 06:59 18:59 06:59 Weight 95.6 kg 95.6 kg Other: Voiding Method Toilet Toilet Toilet # Voids 1 1 2 - Labs CBC & Chem 7: 04/01/25 04:12 04/01/25 04:12 Labs: Abnormal Lab Results - Last 24 Hours (Table) 03/31/25 03/31/25 03/31/25 Range/Units 07:47 07:47 07:47 RBC 4.09 L (4.10-5.20) 10*6/uL Hgb 11.9 L (12.0-15.0) g/dL Hct 35.0 L (37.2-46.3) % MPV 8.5 L (9.5-12.2) fL Immature Gran # 0.06 H (0.00-0.04) 10*3/uL Potassium 3.2 L (3.5-5.1) mmol/L Carbon Dioxide (22-30) mmol/L BUN 6 L (7-17) mg/dL Creatinine (0.52-1.04) mg/dL Glucose (74-99) mg/dL Total Bilirubin 6.2 H (0.2-1.3) mg/dL AST 74 H (14-36) U/L ALT 98 H (4-34) U/L Alkaline Phosphatase 364 H (38-126) U/L Total Protein 5.8 L (6.3-8.2) g/dL Albumin 3.1 L (3.5-5.0) g/dL CA 19-9 Antigen 121.0 H (0.0-34.9) U/mL 04/01/25 04/01/25 Range/Units 04:12 04:12 RBC (4.10-5.20) 10*6/uL Hgb (12.0-15.0) g/dL Hct (37.2-46.3) % MPV 8.4 L (9.5-12.2) fL Immature Gran # (0.00-0.04) 10*3/uL Potassium 3.3 L (3.5-5.1) mmol/L Carbon Dioxide 21 L (22-30) mmol/L BUN 5 L (7-17) mg/dL Creatinine 0.50 L (0.52-1.04) mg/dL Glucose 67 L (74-99) mg/dL Total Bilirubin 7.1 H (0.2-1.3) mg/dL AST 72 H (14-36) U/L ALT 99 H (4-34) U/L Alkaline Phosphatase 404 H (38-126) U/L Total Protein 6.2 L (6.3-8.2) g/dL Albumin 3.4 L (3.5-5.0) g/dL CA 19-9 Antigen (0.0-34.9) U/mL
[2025-04-01] MEDS: INDOMETHACIN 100 MG SUPPOSITORY RECTAL ONE (15:57)
[2025-04-01] MEDS: LACTATED RINGERS 1,000 ML BAG IV STA (16:26)
[2025-04-01] MEDS: IV FLUID CONTINUATION 1,000 ML IV ONE (16:30)
[2025-04-01] MEDS ORDERED: PROPOFOL 10 MG/ML 20 ML VIAL IV ONE (16:35)
[2025-04-01] MEDS ORDERED: ROCURONIUM 10 MG/ML (5 ML VIAL) IV ONE (16:35)
[2025-04-01] MEDS ORDERED: LIDOCAINE 1% INJ 10MG/ML (20 ML MDV) ONE (16:35)
[2025-04-01] MEDS ORDERED: SUCCINYLCHOLINE CHLORIDE 200 MG/10 ML VIAL IV ONE (16:35)
[2025-04-01] MEDS ORDERED: NEOSTIGMINE 1 MG/ML 10 ML VIAL ONE (16:35)
[2025-04-01] MEDS ORDERED: GLYCOPYRROLATE 0.2 MG/ML 2 ML VIAL ONE (16:35)
--- NOTE | 2025-04-01 17:34 | P.PCN ---
Date of Procedure: 04/01/25 Procedure(s) Performed: Brief history: Patient is a 74 year-old pleasant lady scheduled for an ERCP as part of evaluation of acute onset of severe abdominal pain and elevated serum transaminases/jaundice for the last 2 days' duration. Initial ultrasound and CAT scan showed biliary ductal dilation but no gallstones. Bilirubin was up to 7.1. Has mild elevation of serum transaminases. She had an MRCP done today that showed a small CBD stone. Procedure performed: EGD and attempted ERCP Preoperative diagnoses: Epigastric pain/jaundice and choledocholithiasis on MRCP anesthesia: General anesthesia Procedure: After informed consent was obtained from the patient and after the risks benefits and complications including bleeding perforation and pancreatitis explained in detail the patient was brought into the endoscopy unit. The patient was placed in prone position and IV conscious sedation was administered by anesthesia under continuous monitoring. The Olympus side-viewing duodenoscope was then inserted into the mouth and esophagus intubated without any difficulty. The scope was gradually advanced into the stomach and despite multiple attempts I was not able to advance into the second part of the duodenum. There was evidence of duodenal stricture along the duodenal sweep. At this time the scope was removed and an upper endoscopy was performed. The scope was advanced into the duodenal bulb and the right along the duodenal sweep there was a duodenal stricture identified but I was able to advance the upper scope with some difficulty. I removed the scope and this time the side-viewing duodenoscope was once again passed from the mouth into the stomach and once again despite multiple attempts I was not able to advance the scope into the second part of the duodenum. Hence ERCP could not be performed. Patient tolerated the procedure well. 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 Findings were also discussed with Dr. Tejada and Dr. Juares. Recommend transferring her to [facility] for further management and ERCP.. She will be started on clear liquids.
[2025-04-01] MEDS: POTASSIUM CHLORIDE ER 20 MEQ TAB.ER PO STA (18:31)
[2025-04-01 18:37] VITALS: RESP 14
[2025-04-01 19:40] VITALS: TEMP 97.5
[2025-04-01 23:41] VITALS: BP 156/87; PULSE 102
--- NOTE | 2025-04-02 12:05 | P.DS ---
Providers Date of admission: 03/30/25 18:44 I was not physically present during transfer/discharge. I was supposed to assume care of this patient on 04/02/2025, patient was transferred overnight before my shift started Discharge Diagnosis: Common bile duct dilatation secondary to choledocholelithiasis Acute cholecystitis Hypokalemia Hypothyroidism Depression Insomnia Obesity Hospital Course: Patient is a pleasant 74-year-old woman with a medical history of hypothyroidism, depression, obesity class I presented for evaluation of abdominal/flank pain. The pain was of sudden onset today, located in the epigastrium with radiation to the back. She did go to urgent care for this initially but there was concern for acute coronary syndrome and therefore patient was brought into the hospital by EMS for further evaluation. She denies any other symptoms including nausea, vomiting, diarrhea, fevers, chills, palpitations, syncope, diaphoresis, hematuria, dysuria. In the emergency room, patient was afebrile, 118/61, heart rate 70, 97% on room air. CBC was unremarkable. Basic metabolic panel showed hyponatremia to 135, hypokalemia 3.3, otherwise unremarkable. Liver function tests were significant for total bilirubin of 4.2, AST of 68, ALT of 105, alkaline phosphatase of 422. Troponin was less than 0.012. BNP was 76. Urinalysis is unremarkable. EKG showed normal sinus rhythm with first-degree AV block, right axis deviation with right bundle jerrod block, no evidence of ischemia. Chest x-ray is little bit overexposed but appears unremarkable for acute cardiopulmonary process versus mildly increased opacities in the lower lobes given the exposure of the x-ray. Abdomen/pelvis CT demonstrates hydropic gallbladder without surrounding inflammatory changes, extrahepatic biliary duct dilation with the common bile duct measuring up to 11 mm of the pancreatic head. Case was discussed with the emergency room provider and decision was made to move the patient to the hospital for further characterization of her liver function abnormalities and CBD dilation. Patient was admitted for further evaluation of acute abdominal/flank pain along with gastroenterology and general surgery consulted. She was placed on IV antibiotics and IV fluids. Gallbladder ultrasound displaying dilated common bile duct. Demonstrated distended gallbladder with sludge, no evidence of acute cholecystitis. Echocardiogram: EF 55-60%, normal LV size and systolic function, mild mitral and tricuspid regurgitation, no pericardial effusion, no pulmonary hypertension. MRCP displayed 5 mm stone located in the common bile duct. ERCP was unsuccessful in extracting the stone due to tight duodenal stricture along the duodenal Stroupe and the side-viewing duodenoscope was not able to be advanced through the stricture into the second part of duodenum hence the ERCP could not be performed. General surgery recommending laparoscopic cholecystectomy after stone is removed. Patient is hemodynamically stable. This patient requires transfer for higher level of care. She was accepted transfer to [facility] with Dr. Rodgers. Patient seen and examined at bedside. Vital signs reviewed and stable. Physical examination: Vital signs reviewed General: nontoxic, no distress, appears at stated age Derm: warm, dry, intact, jaundiced Head: atraumatic, normocephalic, symmetric Eyes: EOMI, icteric sclera Mouth: no lip lesion, mucus membranes moist Cardiovascular: S1 S2 reg, no murmur, rubs, or gallops Lungs: CTA bilateral, no rhonchi, no rales, no accessory muscle use Abdominal: soft, mild epigastric and left flank tenderness on palpation, no right upper quadrant pain Extremities: no gross muscle atrophy, no edema, no contractures Neuro: Alert, Oriented, CNII-XII grossly intact, gait normal Psych: well appearing, appropriate affect A total of greater than 30 minutes of time were spent preparing this complex discharge summary. Patient was transferred to [facility] on April 01, 2025. Polly Webster MD PGY-1 IM Dictation was produced using [employer] dictation software. please excuse any grammatical, word or spelling errors. Expected date of discharge: 04/02/25 Attending physician: Ivone Chandler MD Consults: 03/30/25 18:36 Consult Physician Routine Consulting Provider: Josh Rizo Consult Reason/Comments: Cardiac risk assessment, abnormal EKG Do you want consulting provider notified?: Yes 03/30/25 18:38 Consult Physician Routine Consulting Provider: Radha Vuong Consult Reason/Comments: ercp Do you want consulting provider notified?: Already Contacted 03/30/25 18:42 Consult Physician Routine Consulting Provider: Serena Tejada Consult Reason/Comments: choledocholithiasis Do you want consulting provider notified?: Already Contacted Primary care physician: Sawyer York Patient Condition at Discharge: Fair Plan - Discharge Summary Discharge Rx Participant: Yes New Discharge Prescriptions: No Action Levothyroxine Sodium 125 mcg PO DAILY FLUoxetine HCL [PROzac] 10 mg PO DAILY Amitriptyline HCl [Elavil] 25 mg PO HS PRN PRN Reason: Insomnia Discharge Medication List Levothyroxine Sodium 125 mcg PO DAILY 06/18/23 [History] Amitriptyline HCl [Elavil] 25 mg PO HS PRN 03/30/25 [History] FLUoxetine HCL [PROzac] 10 mg PO DAILY 03/30/25 [History] Follow up Appointment(s)/Referral(s): Pablo Caldwell MD [REFERRING] - 1-2 days Discharge Disposition[facility]
== END 2025-04-02 00:42 | disposition critical access hospital (66) | DRG 445 ==
LOC: EC 15:13 → 3SCARD 18:44
PROVIDERS: ADMIT Student in an Organized Health Care Education/Training Program; ATTEND Student in an Organized Health Care Education/Training Program
PROC: 0DJ08ZZ Inspection of Upper Intestinal Tract, Via Natural or Artificial Opening Endoscopic (ICD-10-PCS; principal; 2025-04-01 07:30)
DX: K80.42 Calculus of bile duct with acute cholecystitis without obstruction (principal); E87.1 Hypo-osmolality and hyponatremia; K31.5 Obstruction of duodenum; K82.1 Hydrops of gallbladder; E66.01 Morbid (severe) obesity due to excess calories; E03.9 Hypothyroidism, unspecified; F32.A Depression, unspecified; K83.8 Other specified diseases of biliary tract; E87.6 Hypokalemia; G47.00 Insomnia, unspecified; I44.0 Atrioventricular block, first degree; I45.10 Unspecified right bundle-branch block; R74.01 Elevation of levels of liver transaminase levels; Z79.890 Hormone replacement therapy; Z79.899 Other long term (current) drug therapy; Z68.35 Body mass index [BMI] 35.0-35.9, adult; Z90.710 Acquired absence of both cervix and uterus
CPT/HCPCS: 36415; 43235; 43260; 71046; 74177; 74181; 76705; 80053; 81003; 83605; 83690; 83880; 84484; 85025; 85027; 85610; 85730; 86301; 93005; 93306; 96374; 96375; 99285

== ENCOUNTER → 2025-05-05 | Outpatient (CLI) | payer MEDICARE ==
[2025-05-05 15:24] LABS: Basophils # (A) 0.04 X 10*3/uL (0.00-0.10); Basophils % (A) 0.7 %; Eosinophils # (A) 0.23 X 10*3/uL (0.04-0.35); Eosinophils % (A) 4.3 %; HCT 43.1 % (37.2-46.3); HGB 14.3 g/dL (12.0-15.0); Lymphocytes % (A) 20.5 %; MCH 29.1 pg (27.0-32.0); MCHC 33.2 g/dL (32.0-37.0); MCV 87.6 FL (80.0-97.0); Mean Platelet Volume 8.7 FL (9.5-12.2); Monocytes # (A) 0.57 X 10*3/uL (0.20-1.00); Monocytes % (A) 10.6 %; NRBC Per 100 WBC 0 X 10*3/uL (0.00-0.01); Neutrophils # (A) 3.41 X 10*3/uL (1.80-7.70); Neutrophils % (A) 63.7 %; Platelet Count 306 X 10*3/uL (140-440); RBC 4.92 X 10*6/uL (4.10-5.20); RDW 13.2 % (11.5-14.5); WBC 5.36 X 10*3/uL (4.50-10.00)
[2025-05-05 15:39] LABS: ALT 39 U/L (8-44); AST 37 U/L (13-35); Albumin 4.2 g/dL (3.8-4.9); Albumin/Globulin Ratio 1.62 Ratio (1.60-3.17); Alkaline Phosphatase 157 U/L (41-126); BUN/Creat Ratio 9.86 Ratio (12.00-20.00); Blood Urea Nitrogen 6.9 mg/dL (9.0-27.0); Calcium 9.6 mg/dL (8.7-10.3); Carbon Dioxide 24.5 mmol/L (21.6-31.8); Chloride 104 mmol/L (96-109); Globulin 2.6 g/dL (1.6-3.3); Glucose 126 mg/dL (70-110); Potassium 4.1 mmol/L (3.5-5.5); Sodium 139 mmol/L (135-145); Total Bilirubin 0.5 mg/dL (0.3-1.2); Total Protein 6.8 g/dL (6.2-8.2)
== END | disposition home or self-care (01) ==
LOC: LABWHC1 09:01
PROVIDERS: ATTEND Nurse Practitioner Family
DX: K80.40 Calculus of bile duct with cholecystitis, unspecified, without obstruction (principal)
CPT/HCPCS: 36415; 80053; 85025